=== PATIENT | female | born 1950 | race Caucasian/White ===

== ENCOUNTER 2016-12-19 06:14 | Inpatient (IN) | payer MEDICARE, OTHER ==
--- NOTE | 2016-12-08 14:11 | PREOPHP ---
DATE OF ADMISSION: 12/09/2016 The patient is to have surgery with Dr. Bro Butt 12/09/2016. REQUESTING PHYSICIAN: Dr. Bro Butt REASON FOR CONSULTATION: Medical evaluation and clearance of a 66-year-old woman about to undergo s urgery. Thank you, Dr. Butt, for allowing us to participate in the care of this patient. HISTORY OF PRESENT ILLNESS: Arina Aparicio, a 66-year-old woman, had a trimalleolar fracture of her ri ght ankle, reinjured it and is currently being admitted for removal of hardware and open reduction o f a trimalleolar nonunion fracture with internal fixation and allograft placement. The patient had been relatively healthy until she fell and stepped off a curb wrong way and suffered this fracture. PAST SURGICAL HISTORY: Positive for the following: She had surgery for a tubal also had an exploratory surgery in 1979, had total abdominal hysterectomy done in the past with an ovary left in place. Other than that, she has fractured her right ankle and right arm has had no significant medical hospitalizations to speak of and has been managing relatively well. MAJOR MEDICAL ISSUES: Include: COPD secondary to chronic smoking, osteoporosis, hypertension and h ypertensive heart disease. MEDICATIONS: She is currently taking the following medications: 1. Albuterol inhaler as needed. 2. Baby aspirin daily. 3. Stiolto 1 puff twice a day, which is a combination of budesonide and formoterol 160 mcg/4.5 mcg daily. 4. Valium as needed 5 mg. 5. Lasix 20 mg a day. 6. Lamotrigine 100 mg 1 twice a day. 7. Losartan 25 mg daily. 8. Metoprolol tartrate 50 mg half a tablet b.i.d. some vitamins and minerals and some p.r.n. medica tions. ALLERGIES: SHE IS NOT ALLERGIC TO ANY MEDICINES TO HER KNOWLEDGE. SOCIAL HISTORY: The patient is , has 1 daughter, has some grandchildren. She quit smoking cigarettes, does smokes periodic cigars. Alcohol socially. Does drink decaffeinated coffee, usual ly has no difficulty sleeping at night. FAMILY HISTORY: Father is still alive at 88, has dementia. Mother of COPD at age 72. She has some half siblings and a sister. Other than cancer, hypertension and COPD, there is no other signi ficant family history. REVIEW OF SYSTEMS HEENT: Denies any significant headaches. CARDIORESPIRATORY: Shortness of breath on exertion. Denies any chest pain or orthopnea. GASTROINTESTINAL: No melena or hematemesis. GENITOURINARY: No urgency, frequency. GYNECOLOGIC: Post hysterectomy. MUSCULOSKELETAL: Positive for right ankle pain secondary to her fracture and reinjury. NEUROPSYCHIATRIC: Unremarkable. GENERAL HEALTH: As above. PHYSICAL EXAMINATION: VITAL SIGNS: The patient's blood pressure was 125/86, pulse was 79 and regular, respirations were 1 8, temperature was 97, height 5 feet 6-1/2 inches, weight 152 pounds. GENERAL: The patient was noted to be a well-developed, well-nourished female, alert and cooperative , in no apparent acute distress, oriented to time, place, and person. HEAD, EARS, EYES, NOSE AND THROAT: Head was atraumatic. Eyes: Pupils were equal, reactive to ligh t and accommodation. Fundi were benign. Tympanic membranes were unremarkable. Nose was negative. Mouth was unremarkable. Fair oral hygiene was present. NECK: Supple without any rigidity. Trachea was midline. Thyroid was unremarkable. Neck veins wer e flat. Carotid pulses were equal. No bruits were heard. BACK: Unremarkable. CHEST: Symmetrical. BREASTS AND AXILLARY: Did not reveal any masses. LUNGS: Clear to percussion and auscultation. Few scattered rhonchi were noted, but the patient was moving air relatively well, but cleared up with deep breaths. HEART: PMI is fifth intercostal space at the midclavicular line. Regular sinus rhythm was noted. No significant murmurs, rubs, or gallops being elicited. ABDOMEN: Soft, good bowel sounds were noted. No significant organomegaly, masses, or tenderness. Scars from prior surgery were noted. PELVIC/RECTAL: Per mental retardation aide. EXTREMITIES: Did not reveal any clubbing, edema or cyanosis; however, there was a boot on the right lower extremity for immobilization of her right trimalleolar fracture. Peripheral pulses were phys iologic. SKIN: Moist and warm without any eruptions. No gross lymphadenopathy was noted. NEUROLOGIC: Grossly intact. IMPRESSION: 1. Nonunion of a trimalleolar fracture, right ankle. 2. Chronic obstructive pulmonary disease. 3. Hypertension. 4. Osteoporosis by history. 5. Degenerative joint disease. 6. Hypertensive heart disease. DISCUSSION: Review of laboratory and other data revealed the following: The patient's chemistry pa denise including electrolytes, glucose, BUN, creatinine and liver function tests, serum iron, magnesium , thyroid function tests, CBC, sed rate, PT and PTT were in normal. The patient's urinalysis reveal ed positive nitrite as well as a small amount of leukocytes and red cells. The patient, in view of the fact that she was asymptomatic; however, a high risk was begun on therapy prior to her surgery a nd her urinalysis will be repeated prior to her surgery. The patient's chest x-ray did not reveal a ny acute cardiopulmonary changes. Patient also had a cardiac clearance with Dr. Lori Harrison who fe lt that this patient was low risk in terms of cardiac status and EKG basically revealed a regular si nus rhythm and right bundle branch block. DISCUSSION: Dr. Bro Butt, I see no contraindication in this patient undergoing current proposed surgery under desired form of anesthesia and feel she is a suitable candidate at this particular i nt in time. Should any medical problems arise during her outpatient surgery at [facility], we will be m ore than happy to address them at the appropriate times. Thank you again, Dr. Butt, for allowing us to participate in the care of this patient. Dictated By: KATIE NAVA/VICKY Conf#: [id number] DID#: [id number]
[2016-12-18 11:16] VITALS: BMI 24.6
[2016-12-19] VITALS (16 sets, daily range): BP systolic 98–140; BP diastolic 26–59; PULSE 67–78; RESP 14–20; Ht 170.2 cm; Wt 69.9 kg
[~2016-12-19] VITALS: Ht 170.2 cm; Wt 69.9 kg
[2016-12-19] MEDS ORDERED: LACTATED RINGER'S 1,000 ML IV* SCH (06:30)
[2016-12-19] MEDS ORDERED: POLYMYXIN/BACITRACIN 1L IRRIG ONE (06:44)
[2016-12-19] MEDS ORDERED: MIDAZOLAM 1 MG/ML 2 ML INJ ONE (06:52)
[2016-12-19] MEDS ORDERED: FENTAnyl 50 MCG/ML VIAL ONE (06:52)
[2016-12-19] MEDS ORDERED: ONDANSETRON 4 MG INJ ONE (06:52)
[2016-12-19] MEDS ORDERED: SUCCINYLCHOLINE CHLORIDE 100 MG/5 ML SYG IV ONE (06:52)
[2016-12-19] MEDS ORDERED: ROCURONIUM 50 MG INJ ONE (06:52)
[2016-12-19] MEDS ORDERED: PROPOFOL 20 ML ONE (06:52)
[2016-12-19] MEDS ORDERED: CEFAZOLIN 1 GM INJ ONE (06:52)
[2016-12-19] MEDS ORDERED: METOCLOPRAMIDE 10 MG INJ ONE (06:53)
[2016-12-19] MEDS ORDERED: DEXAMETHASONE 4 MG/ML 1 ML INJ ONE (06:54)
--- NOTE | 2016-12-19 07:09 | HPN ---
Date/Time of Note Date/Time of Note DATE: 12/19/16 TIME: 07:09 Interval H&P Admission Note Pt. seen H&P reviewed: No system changes AARON STUART MD Dec 19, 2016 07:09
[2016-12-19] MEDS ORDERED: ROPIVACAINE 0.5 % 30 ML VIAL ONE ×2 (07:13→10:44)
[2016-12-19] MEDS ORDERED: DIPHENHYDRAMINE 25 MG CAP PO PRN (07:30)
[2016-12-19] MEDS ORDERED: ONDANSETRON 4 MG INJ IV PRN ×2 (07:30→08:30)
[2016-12-19] MEDS ORDERED: CEFAZOLIN 1 GM/50 ML (PMX) IVPB SCH (08:00)
[2016-12-19] MEDS ORDERED: FENTAnyl 50 MCG/ML VIAL IV PRN ×2 (08:30)
[2016-12-19] MEDS ORDERED: MEPERIDINE 25 MG INJ IV PRN (08:30)
[2016-12-19] MEDS ORDERED: HYDROmorphONE (0.2 MG/ML) 10ML SYG IV PRN ×2 (08:30)
[2016-12-19] MEDS ORDERED: LABETALOL HCL 20MG INJ IV PRN (08:30)
[2016-12-19] MEDS ORDERED: hydrALAzine 20 MG INJ IV PRN (08:30)
[2016-12-19] MEDS: SENNA/DOCUSATE NA (8.6MG/50MG) TAB PO SCH ×2 (09:00→20:32)
[2016-12-19] MEDS ORDERED: BACITRACIN/POLYMYXIN 28.35 GM OINT TOP ONE (10:00)
[2016-12-19] MEDS ORDERED: BUPIVACAINE 0.5% (SDV) 30 ML INJ ONE (10:00)
--- NOTE | 2016-12-19 11:11 | RADRPT ---
PROCEDURE: Intraoperative imaging of the right ankle with fluoroscopy. CLINICAL INDICATION: Right ankle pain. Intraoperative. TECHNIQUE: 6 images of the right ankle were obtained in the operating room with an image intensifi er. No radiologist was in attendance. Fluoroscopy time is 108 seconds. COMPARISON: No prior study is available for comparison. FINDINGS: Surgical instruments are noted overlying the right ankle. Images demonstrate open reduction and internal fixation of the medial and lateral malleoli with plat es and screws. IMPRESSION: 1. Intraoperative imaging of the right ankle. RPTAT: QQ .Charly Gastelum MD, MD Date Time Electronically viewed and signed by .Charly Gastelum MD, MD on 12/19/2016 11:11 .R/
[2016-12-19] MEDS: HYDROmorphONE (0.2 MG/ML) 10ML SYG IV PRN ×5 (11:40→13:00)
[2016-12-19] MEDS: HYDROmorphONE 0.2 MG/ML PCA IV SCH ×2 (12:01→20:35)
--- NOTE | 2016-12-19 12:35 | OPR ---
Date/Time of Note Date/Time of Note DATE: 12/19/16 TIME: 12:22 Operative Report Procedure Date: Dec 19, 2016 Preoperative Diagnosis 1. Right distal fibula fracture nonunion, malunion 2. right distal tibia fracture nonunion malunion Postoperative Diagnosis 1. Right distal fibula fracture nonunion, malunion 2. right distal tibia fracture nonunion malunion Operation/Procedure Performed Right distal fibular fracture nonunion malunion open reduction internal fixation with allograft Right distal tibia fracture nonunion malunion open reduction internal fixation with allograft Right ankle open reduction internal fixation of syndesmosis Use of fluoroscopy Application of short leg splint Surgeon Bro Stuart MD Home Health Speech Therapist None Anesthesia Type: general, other (Popliteal regional block anesthesia with local saphenous block) Anesthesiologist: BO LOCKE MD Tourniquet Time: 2 hours and 15 minutes at 250 mmHg Estimated Blood Loss: 50 - 100 ml's Transfusion none Specimen None Grafts/Implants Arthrex titanium distal fibular locking plate Arthrex stainless steel medial plate Arthrex arthrocell allograft Tubes/Drains None Complications none Pt Condition Post Procedure: stable Disposition: PACU Indications Patient is a 66-year-old female with a history of lupus presenting with a six- month history of a right distal ankle fracture that has stayed in a malunited position and is a nonunion as well. Given the displacement and type of fracture pattern patient was indicated for open reduction and internal fixation of the malunion and nonunion of the distal fibula and tibia fracture Risk Note: Patient was explained the risks and benefits of surgery and the patient's [place] and [place] tribes language including not limited to infection, bleeding, injury to blood vessels, nerves, ligaments or tendons. Risks of anesthesia, deep vein thrombosis and need for reduce future surgery. Patient acknowledged these risk by signing the surgical consent form. Procedure Description The patient was met in the preoperative holding area, marked with the correct operative extremity confirmed with both patient and consent. The patient was then brought back in the operative theater, placed supine on operative table, given preoperative antibiotics and preoperative regional block anesthesia. The patient was then placed supine on the table with all bony prominences well padded with a nonsterile tourniquet placed on the operative extremity. The patient was then prepped and draped in the normal sterile fashion. All parties in the room did a timeout and everyone agreed it was the correct patient, and extremity and procedure. Attention was then turned initially to the distal fibular fracture. An incision was made over the distal fibula. The incision was taken down to the fibula with care taken to avoid injury to the neurovascular structures. The malunion and nonunion fracture was identified. The bony callus at the malunion site was osteotomized and removed and debrided and the fracture was reduced. The bone quality was found to be extensively osteoporotic in nature. There are 2 fracture sites found and the proximal fracture site was held in reduction and a 3.0 lag screw was placed across the fracture site in typical fashion. The remainder of the fracture was then fixated with a distal fibular plate with proximal cortical screws initially followed by locking screws distally and fibula was held in reduction and shown that the fibular length and alignment and rotation had been re-achieved. Once this was shown, the wound was irrigated thoroughly. Attention was then brought over to the medial aspect of the ankle and incision was taken down over the medial distal tibia where the fractures were identified and callus in the malunited and nonunited site was removed and debrided. Again the bony quality was found to be extensively osteoporotic. The fracture was held in reduction and a medial malleolar plate was then placed over the fracture site to hold the fracture in reduction and fixated initially proximally and then tamped in and held in place with a 4.0 partially-threaded screw at the tip of the medial malleolus. This is then followed by proximal cortical screws. The wound was irrigated thoroughly and Arthro allograft cell was then placed in the area of bony comminuted loss on both the medial distal tibia and lateral distal fibula. A 3.5 millimeter screw was then placed across the syndesmosis from lateral to medial, from the distal fibula to the medial tibia to hold the syndesmosis in place. Tourniquet had been brought down and hemostasis had been achieved prior to the wound closure. All wounds were thoroughly irrigated and closed in layers with initially 2-0 Vicryl, followed by 3-0 Monocryl followed by 3-0 nylon in a vertical mattress fashion. All wounds were dressed with Xeroform, antibiotic ointment, 4 x 4s, 5 ABDs were placed and the patient was placed in a well-padded short leg splint. All sponge and needle counts were correct. . Modifier 22 note: Given the extensive length of time that the fracture was in a improper position thus leading to a malunited fracture that was also a nonunion as well this created an extensively more complicated fracture pattern and typically more difficult surgery. This case was then made extensively longer and more technically challenging as a result of this complicated situation due to the fact that the ankle fracture had not been treated appropriately prior to now. Thus it should be compensated accordingly. BRO STUART MD Dec 19, 2016 12:34
[2016-12-19] MEDS ORDERED: DIAZEPAM 5 MG TAB PO PRN (14:30)
--- NOTE | 2016-12-19 14:36 | CONS ---
Date/Time of Note Date/Time of Note DATE: 12/19/16 TIME: 14:31 Consult Date/Type/Reason Admit Date/Time Dec 19, 2016 at 07:10 Initial Consult Date 12/08/2016 Type of Consultation: internal medicine Reason for Consultation pre-op evaluation and clearance Ordering Provider: AARON STUART MD Subjective post-op in recovery room alert no complaints Objective Vital Signs Date Time Temp Pulse Resp B/P Pulse Ox O2 Delivery O2 Flow Rate FiO2 12/19/16 14:08 97.8 73 18 132/50 93 12/19/16 12:30 Nasal Cannula 2.0 Exam vss chest clear heart regular rhythm abbd. soft Results/Medications Medications Current Medications Lactated Ringer's (Lr) 1,000 ml @ 0 mls/hr Q0M IV* ; Start 12/19/16 at 06:30; Stop 12/19/16 at 23:00 Senna/Docusate Sodium (Senokot-S) 1 tab BID PO ; Start 12/19/16 at 09:00 Simethicone (Mylicon) 80 mg TID PRN PO DISTENSION/GAS/BLOATING; Start 12/19/16 at 07:30 Ondansetron HCl (Zofran Inj) 4 mg Q4H PRN IV NAUSEA AND/OR VOMITING; Start 12/19/16 at 07:30 Diphenhydramine HCl (Benadryl) 25 mg Q4H PRN PO ITCHING; Start 12/19/16 at 07: 30 Hydromorphone HCl (Dilaudid DIRECTOR DESIGN) MG/HR CONTINUOUS RATE ... Q4PCA IV Last administered on 12/19/16t 12:01; Admin Dose 6 MG; Start 12/19/16 at 07:30 Oxycodone HCl 10 mg 10 mg Q4H PRN PO PAIN; Start 12/19/16 at 07:30 Cefazolin Sodium (Ancef 1 Gm/50 ml (Pmx)) 50 ml @ 100 mls/hr Q8H IVPB ; Start 12/19/16 at 12:00; Stop 12/21/16 at 04:29 Lamotrigine (Lamictal) 100 mg BID PO ; Start 12/19/16 at 21:00; Status UNV Losartan Potassium (Cozaar) 25 mg DAILY PO ; Start 12/20/16 at 09:00; Status UNV Metoprolol Tartrate (Lopressor) 25 mg BID PO ; Start 12/19/16 at 21:00; Status UNV Diazepam (Valium) 5 mg Q6H PRN PO ANXIETY; Start 12/19/16 at 14:30; Status UNV Assessment/Plan Chief Complaint/Hosp Course post op right ankle surgery stable Problems: Additional Assessment/Plan plan medications reordered will follow with you thank you KATIE Muir MD Dec 19, 2016 14:36
[2016-12-19] MEDS: CEFAZOLIN 1 GM/50 ML (PMX) 50 ML IVPB SCH ×2 (16:45→20:32)
[2016-12-19] MEDS ORDERED: ALBUTEROL HFA 8 GM INHALER INH PRN (17:00)
[2016-12-19] MEDS: METOPROLOL 25 MG TAB PO SCH (20:33)
[2016-12-19] MEDS: LAMOTRIGINE 100 MG TAB PO SCH (20:52)
[2016-12-20] VITALS (30 sets, daily range): BP systolic 70–118; BP diastolic 38–60; PULSE 66–84; RESP 16–30
[2016-12-20] MEDS: CEFAZOLIN 1 GM/50 ML (PMX) 50 ML IVPB SCH ×3 (03:56→21:32)
[2016-12-20 05:12] LABS: BASOPHILS % 0.1 % (0.0-2.0); HEMATOCRIT 47.7 % (37.0-47.0); HEMOGLOBIN 15.3 g/dl (12.0-16.0); LYMPHOCYTES # 1.2 10^3/ul (0.8-2.9); LYMPHOCYTES % 6.6 % (15.0-51.0); MEAN CORPUSCULAR HEMOGLOBIN 31.7 pg (29.0-33.0); MEAN CORPUSCULAR HGB CONC 32.1 g/dl (32.0-37.0); MEAN PLATELET VOLUME 9.9 fl (7.4-10.4); MONOCYTE # 1.2 10^3/ul (0.3-0.9); MONOCYTES % 6.3 % (0.0-11.0); NEUTROPHIL # 15.9 10^3/ul (1.6-7.5); NEUTROPHILS % 86.3 % (39.0-77.0); PLATELET COUNT 234 10^3/UL (140-415); RED BLOOD COUNT 4.82 10^6/ul (4.20-5.40); RED CELL DISTRIBUTION WIDTH 11.9 % (11.5-14.5); WHITE BLOOD COUNT 18.4 10^3/ul (4.8-10.8)
[2016-12-20 05:45] LABS: ALBUMIN/GLOBULIN RATIO 1.33; BILIRUBIN,INDIRECT 0.1 mg/dl (0-1.1); BILIRUBIN,TOTAL 0.1 mg/dl (0.2-1.3); CALCIUM 8.6 mg/dl (8.4-10.2); CREATININE 1.16 mg/dl (0.44-1.00); POTASSIUM 4.6 mmol/L (3.5-5.1)
--- NOTE | 2016-12-20 08:04 | CONS ---
Date/Time of Note Date/Time of Note DATE: 12/20/16 TIME: 07:58 Consult Date/Type/Reason Admit Date/Time Dec 19, 2016 at 07:10 Initial Consult Date 12/08/2016 Type of Consultation: internal medicine Reason for Consultation medical f/u and management Ordering Provider: AARON STUART MD Subjective patient quite sleepy hard to wake up however did say good morning,no obvious complaints. Objective Vital Signs Date Time Temp Pulse Resp B/P Pulse Ox O2 Delivery O2 Flow Rate FiO2 12/20/16 06:41 17 12/20/16 02:35 97.8 86 112/53 96 12/19/16 14:00 Nasal Cannula 2.0 Intake and Output 12/19/16 12/19/16 12/20/16 15:00 23:00 07:00 Intake Total 1000 ml 100 ml 2150 ml Output Total 50 ml 800 ml Balance 950 ml 100 ml 1350 ml Exam vss stable heent unremakable lungs clear heart regularneuro quite lethargic Results/Medications Result Diagram: 12/20/16 0438 12/20/16 0438 Results 24 hrs Laboratory Tests Test 12/20/16 04:38 White Blood Count 18.4 H Red Blood Count 4.82 Hemoglobin 15.3 Hematocrit 47.7 H Mean Corpuscular Volume 99.0 Mean Corpuscular Hemoglobin 31.7 Mean Corpuscular Hemoglobin Concent 32.1 Red Cell Distribution Width 11.9 Platelet Count 234 Mean Platelet Volume 9.9 Neutrophils % 86.3 H Lymphocytes % 6.6 L Monocytes % 6.3 Eosinophils % 0.0 Basophils % 0.1 Nucleated Red Blood Cells % 0.0 Neutrophils # 15.9 H Lymphocytes # 1.2 Monocytes # 1.2 H Eosinophils # 0.0 Basophils # 0.0 Nucleated Red Blood Cells # 0.0 Sodium Level 137 Potassium Level 4.6 Chloride Level 96 L Carbon Dioxide Level 29 Anion Gap 17 H Blood Urea Nitrogen 14 Creatinine 1.16 H Glucose Level 155 Calcium Level 8.6 Total Bilirubin 0.1 L Direct Bilirubin 0.00 Indirect Bilirubin 0.1 Aspartate Amino Transf (AST/SGOT) 56 H Alanine Aminotransferase (ALT/SGPT) 41 Alkaline Phosphatase 64 Total Protein 7.0 Albumin 4.0 Globulin 3.00 Albumin/Globulin Ratio 1.33 Medications Current Medications Senna/Docusate Sodium (Senokot-S) 1 tab BID PO Last administered on 12/19/16 20:32; Admin Dose 1 TAB; Start 12/19/16 at 09:00 Simethicone (Mylicon) 80 mg TID PRN PO DISTENSION/GAS/BLOATING; Start 12/19/16 at 07:30 Ondansetron HCl (Zofran Inj) 4 mg Q4H PRN IV NAUSEA AND/OR VOMITING; Start 12/19/16 at 07:30 Diphenhydramine HCl (Benadryl) 25 mg Q4H PRN PO ITCHING; Start 12/19/16 at 07: 30 Hydromorphone HCl (Dilaudid BIOMEDICAL ELECTRONICS TECHNICIAN) MG/HR CONTINUOUS RATE ... Q4PCA IV Last administered on 12/19/16 20:35; Admin Dose 6 MG; Start 12/19/16 at 07:30 Oxycodone HCl 10 mg 10 mg Q4H PRN PO PAIN; Start 12/19/16 at 07:30 Cefazolin Sodium (Ancef 1 Gm/50 ml (Pmx)) 50 ml @ 100 mls/hr Q8H IVPB Last administered on 12/20/16 03:56; Admin Dose 100 MLS/HR; Start 12/19/16 at 12:00 ; Stop 12/21/16 at 04:29 Lamotrigine (Lamictal) 100 mg BID PO Last administered on 12/19/16 20:52; Admin Dose 100 MG; Start 12/19/16 at 21:00 Losartan Potassium (Cozaar) 25 mg DAILY PO ; Start 12/20/16 at 09:00 Metoprolol Tartrate (Lopressor) 25 mg BID PO Last administered on 12/19/16 20: 33; Admin Dose 25 MG; Start 12/19/16 at 21:00 Diazepam (Valium) 5 mg Q6H PRN PO ANXIETY; Start 12/19/16 at 14:30 Assessment/Plan Chief Complaint/Hosp Course post op right ankle surgery stable Problems: Additional Assessment/Plan will d/c director career services and narcotics ,abgs to r/o co2 retention,currently off o2 KATIE SEVERINO MD Dec 20, 2016 08:04
[2016-12-20] MEDS: SENNA/DOCUSATE NA (8.6MG/50MG) TAB PO SCH ×2 (08:24→21:31)
[2016-12-20] MEDS: LOSARTAN 25 MG TAB PO SCH (08:24)
[2016-12-20] MEDS: LAMOTRIGINE 100 MG TAB PO SCH ×2 (08:24→21:00)
[2016-12-20] MEDS: METOPROLOL 25 MG TAB PO SCH ×2 (08:25→21:00)
[2016-12-20 08:43] LABS: AADO2 Arterial 40.9 mmHg (7.0-24.0); Allen Test ACCEPTAB; Arterial Base Excess -3.2 mmol/L (-3.0-3); Arterial COHb 2.7 % (0.0-3.0); Arterial Fraction of Oxyhgb 76.8 % (93.0-99.0); Arterial HCO3 28.8 mmol/L (22.0-26.0); Arterial MetHb 0.5 % (0.0-1.5); Arterial Total Hemglobin 15.7 g/dl (12.0-18.0); MODE NASAL CANNULA
[2016-12-20] MEDS ORDERED: SPECIAL NON-STANDARD MEDICATION INH SCH (09:00)
[2016-12-20] MEDS: SALMETEROL/FLUTICASONE 250/50 INHA INH SCH ×2 (09:00→21:31)
[2016-12-20 12:14] LABS: AADO2 Arterial 58.6 mmHg (7.0-24.0); Allen Test ACCEPTAB; Arterial Base Excess 2.2 mmol/L (-3.0-3); Arterial COHb 2.1 % (0.0-3.0); Arterial Fraction of Oxyhgb 86.7 % (93.0-99.0); Arterial MetHb 0.1 % (0.0-1.5); Arterial Total Hemglobin 15.6 g/dl (12.0-18.0); Blood Gas IEPAP 22/8; MODE MASK - BIPAP
--- NOTE | 2016-12-20 12:28 | PN ---
Date/Time of Note Date/Time of Note DATE: 12/20/16 TIME: 12:28 Assessment/Plan Lines/Catheters IV Catheter Type (from Nrsg): Saline Lock Santacruz in Place (from Nrsg): No Assessment/Plan Assessment/Plan Postoperative day #1 status post right ankle trimalleolar nonunion fracture open reduction internal fixation -Nonweightbearing to the right lower extremity - Xarelto for DVT prophylaxis -Patient was transferred to ICU per Dr. Blanco for BiPAP -P.o. and IV pain control - Patient to be discharged home. By Dr. Blanco and will FU with Dr Bro Stuart in 1 week Ace Stuart MD Subjective 24 Hr Interval Summary Patient doing well pain is well controlled. She denies any fevers chills nausea or vomiting Constitutional: no complaints Feeding: advancing diet Pain Control: well controlled Exam/Review of Systems Vital Signs Vitals Vital Signs Date Time Temp Pulse Resp B/P Pulse Ox O2 Delivery O2 Flow Rate FiO2 12/21/16 06:00 87 17 128/62 97 BIPAP 12/21/16 05:26 35 12/21/16 04:00 98.6 12/20/16 09:00 2.0 Intake and Output 12/20/16 12/20/16 12/21/16 15:00 23:00 07:00 Intake Total 50 ml 980 ml 588 ml Balance 50 ml 980 ml 588 ml Exam Constitutional: alert, oriented, well developed Musculoskeletal: other (Right lower extremity-splint intact, toes wiggle, capillary refill brisk brisk, toes are warm and well-perfused, sensation intact to light touch to the exposed toes) Results Result Diagram: 12/20/16 0438 12/20/16 0438 BRO STUART MD Dec 20, 2016 12:28
--- NOTE | 2016-12-20 14:20 | TS ---
DATE OF ADMISSION: 12/19/2016 DATE OF DISCHARGE: Patient seen approximately 7:45 a.m. and again at 11:30 a.m. in the intensive care unit. HISTORY OF PRESENT ILLNESS: Arina Aparicio is a 66-year-old woman with chronic obstructive pulmonary disease, underwent right ankle surgery yesterday, was doing relatively well postoperatively. This morning on my visit was hard to arouse and albeit said answered some questions, did not seem to be totally with it. Arterial blood gases were subsequently ordered which revealed a pH of 7.1 and a CO2 in the 80s within normal. PaO2 compatible with extreme CO2 retention , possibly secondary to pain medication and/or chronic O2 use,although at the time that I saw the patient, she was not on any O2. Subsequent to that, patient was transferred to the intensive care unit after consultation was obtained by Dr. Cano and for further pulmonary management was undertaken. PHYSICAL EXAMINATION VITAL SIGNS: In the intensive care unit revealed the following: Patient's blood pressure was 101/49. BiPAP was on O2 was 91%, pulse was 71. GENERAL: The patient was afebrile. HEENT: BiPAP being on but the patient much more alert than she was earlier in the morning. CHEST: Lung were relatively clear with few scattered rhonchi and wheezes. HEART: Revealed a regular rhythm. ABDOMEN: Unremarkable. IMPRESSION: 1. Acute CO2 retention in a patient with chronic obstructive pulmonary disease. 2. Hypertension. 3. Status post right ankle surgery. PLAN: To maintain CPAP until her CO2 is normalized, avoidance of pain medication and chronic O2. This will be managed with Dr. Cano's help. CONDITION: At second visit is stable. PROGNOSIS: Obviously dependent upon how patient responds to current therapy. Dictated By: KATIE NAVA/VICKY Conf#: [id number] DID#: [id number] MTDD
--- NOTE | 2016-12-20 14:27 | CONS ---
DATE OF ADMISSION: 12/19/2016 DATE OF CONSULTATION: TYPE OF CONSULTATION: Pulmonary. REASON FOR CONSULT: Respiratory distress. HISTORY OF PRESENT ILLNESS: This is a 66-year-old lady with a history of COPD, extensive tobacco hi story, quit smoking 4 years ago, came in for evaluation of a trimalleolar fracture requiring surgica l repair by Dr. Stuart. The patient underwent surgery without complication. Postoperatively, this morning had increasing respiratory distress, found to have significant hypercapnia on arterial blood gas requiring initiation of noninvasive positive pressure ventilation. At the time it appears the patient was on her HOTHOUSE WORKER which may have contributed to alveolar hypoventilation and respiratory distre ss. PAST MEDICAL HISTORY: As above. MEDICATIONS: Per chart. ALLERGIES: NONE. SOCIAL HISTORY: Nonsmoker, no alcohol, no history of drug use. FAMILY HISTORY: Noncontributory. SYSTEMS REVIEW: A 12-point review of systems was negative other than that mentioned above. PHYSICAL EXAMINATION: GENERAL: Well-nourished, well-developed lady, talking in full and complete sentences on BiPAP. VITAL SIGNS: Currently afebrile, temperature 98, pulse 80, blood pressure 108/50, O2 saturation 96% on FIO2 of 30% BiPAP. NECK: Supple. No JVD or lymphadenopathy. CARDIAC: S1, S2, no added sounds or murmurs. CHEST: Diminished air entry bilaterally. ABDOMEN: Soft, nontender. No guarding or rebound. EXTREMITIES: No cyanosis, clubbing. Edema +1. NEUROLOGIC: No focal deficits. DIAGNOSTIC DATA: Chest x-ray is pending at time of this dictation, repeat arterial blood gas is pen ding also. IMPRESSION AND PLAN: Hypercapnic respiratory failure, likely secondary to over sedation with an und erlying history of chronic obstructive pulmonary disease. The patient will require: 1. Decrease IV sedation, started on IV pain control. 2. Incentive spirometry. 3. Noninvasive positive pressure ventilation. 4. Bronchodilators as needed. DIFFERENTIAL DIAGNOSIS: Including acute pulmonary embolus, although this does not normally cause ac [place] hypercapnic respiratory failure. Dictated By: ALYSE CROFT MD SV/NTS Conf#: [id number] DID#: [id number] CC: KATIE SEVERINO MD; AARON STUART MD;*EndCC*
[2016-12-20] MEDS: HYDROmorphONE 1 MG/ML SYG IV PRN ×2 (14:37→21:40)
[2016-12-20] MEDS: 1/2 NS + KCL 20 MEQ 1,000 ML IV SCH (15:37)
[2016-12-20] MEDS ORDERED: SOD CHLORIDE 0.9% 250 ML IV ONE ×2 (16:00→16:30)
[2016-12-20] MEDS ORDERED: SODIUM CHLORIDE 0.45% 500 ML BAG IV* ONE (16:30)
[2016-12-20] MEDS ORDERED: LIDOCAINE 1% (MPF) 5 ML VIAL SC ONE (16:30)
[2016-12-20] MEDS ORDERED: NORepinephrine 8MG/250 ML (PMX 250 ML IV SCH (16:30)
[2016-12-20] MEDS ORDERED: SOD CHLORIDE 0.9% 100 ML ONE (18:45)
--- NOTE | 2016-12-20 19:13 | RADRPT ---
PROCEDURE: Ultrasound guidance for placement of needle in left upper extremity vein. CLINICAL INDICATION: Venous access. TECHNIQUE: Limited sonography of the left upper extremity was performed. Ultrasound images were recorded and s tored in the patient's medical record. COMPARISON: None. FINDINGS: The ultrasound images demonstrate a patent left upper extremity vein. The PICC line was inserted by the PICC line nurse. IMPRESSION: 1. Ultrasound guidance for a needle placement in a left upper extremity vein. 2. The left upper extremity vein is patent. RPTAT: QQ .Charly Gastelum MD, MD Date Time Electronically viewed and signed by .Charly Gastelum MD, MD on 12/20/2016 19:13 .R/
--- NOTE | 2016-12-20 19:44 | RADRPT ---
PROCEDURE: XR Chest. CLINICAL INDICATION: Check PICC line position. TECHNIQUE: Single frontal view. COMPARISON: No prior study is available for comparison. FINDINGS: There is a left arm PICC line with the tip in the lower superior vena cava. The lungs are clear. The heart size is normal. There is no pleural effusion. There is no pneumothorax. IMPRESSION: 1. Left arm PICC line tip in satisfactory position. 2. Otherwise normal chest radiograph. RPTAT: QQ .Charly Gastelum MD, Date Time Electronically viewed and signed by .Charly Gastelum MD, MD on 12/20/2016 19:44 .R/
[2016-12-20] MEDS: RIVAROXABAN 10 MG TABLET PO SCH (21:32)
[2016-12-21] VITALS (24 sets, daily range): BP systolic 94–145; BP diastolic 39–119; PULSE 73–94; RESP 16–32
[2016-12-21] MEDS: 1/2 NS + KCL 20 MEQ 1,000 ML IV SCH ×2 (02:30→10:18)
[2016-12-21] MEDS: CEFAZOLIN 1 GM/50 ML (PMX) 50 ML IVPB SCH (05:12)
--- NOTE | 2016-12-21 07:15 | RADRPT ---
PROCEDURE: XR Chest. CLINICAL INDICATION: Shortness of breath. TECHNIQUE: Single frontal view. COMPARISON: 12/20/2016. FINDINGS: There is a left arm PICC line with the tip in the upper superior vena cava. There is mild pulmonary edema. The lungs are otherwise clear. The heart size is normal. There is no pleural effusion. There is no pneumothorax. IMPRESSION: 1. Left arm PICC line tip in the upper superior vena cava. 2. Mild pulmonary edema.. 3. Otherwise unremarkable chest radiograph. RPTAT: QQ .Charly Gastelum MD, MD Date Time Electronically viewed and signed by .Charly Gastelum MD, MD on 12/21/2016 07:14 .R/
[2016-12-21 07:51] LABS: AADO2 Arterial 105.1 mmHg (7.0-24.0); Allen Test ACCEPTAB; Arterial Base Excess -1.6 mmol/L (-3.0-3); Arterial COHb 0.6 % (0.0-3.0); Arterial Fraction of Oxyhgb 95.3 % (93.0-99.0); Arterial HCO3 25.3 mmol/L (22.0-26.0); Arterial MetHb 0.2 % (0.0-1.5); Arterial Total Hemglobin 14.3 g/dl (12.0-18.0); Blood Gas IEPAP 18/5; Blood Gas PS 13; MODE MASK - BIPAP
[2016-12-21] MEDS: LOSARTAN 25 MG TAB PO SCH (08:54)
[2016-12-21] MEDS: LAMOTRIGINE 100 MG TAB PO SCH ×2 (08:54→20:28)
[2016-12-21] MEDS: SALMETEROL/FLUTICASONE 250/50 INHA INH SCH ×2 (08:54→21:08)
[2016-12-21 08:55] LABS: BASOPHILS % 0.1 % (0.0-2.0); EOSINOPHILS % 0.1 % (0.0-7.0); HEMATOCRIT 39.1 % (37.0-47.0); HEMOGLOBIN 13.2 g/dl (12.0-16.0); LYMPHOCYTES # 0.7 10^3/ul (0.8-2.9); LYMPHOCYTES % 8.9 % (15.0-51.0); MEAN CORPUSCULAR HEMOGLOBIN 32.5 pg (29.0-33.0); MEAN CORPUSCULAR HGB CONC 33.8 g/dl (32.0-37.0); MEAN CORPUSCULAR VOLUME 96.3 fl (82.0-101.0); MEAN PLATELET VOLUME 10.2 fl (7.4-10.4); MONOCYTE # 0.6 10^3/ul (0.3-0.9); MONOCYTES % 7.2 % (0.0-11.0); NEUTROPHIL # 6.8 10^3/ul (1.6-7.5); NEUTROPHILS % 83.1 % (39.0-77.0); RED BLOOD COUNT 4.06 10^6/ul (4.20-5.40); RED CELL DISTRIBUTION WIDTH 11.9 % (11.5-14.5); WHITE BLOOD COUNT 8.2 10^3/ul (4.8-10.8)
[2016-12-21] MEDS: SENNA/DOCUSATE NA (8.6MG/50MG) TAB PO SCH ×2 (08:55→20:28)
[2016-12-21] MEDS: METOPROLOL 25 MG TAB PO SCH ×2 (08:55→20:28)
[2016-12-21 09:06] LABS: POSITIVE DIFF @See below
[2016-12-21 09:16] LABS: BILIRUBIN,INDIRECT 0.1 mg/dl (0-1.1); CALCIUM 8.4 mg/dl (8.4-10.2); CREATININE 0.68 mg/dl (0.44-1.00)
[2016-12-21 09:17] LABS: ALBUMIN 3.3 g/dl (3.3-4.9); BILIRUBIN,TOTAL 0.1 mg/dl (0.2-1.3); TOTAL PROTEIN 6.6 g/dl (6.1-8.1)
--- NOTE | 2016-12-21 10:06 | CONS ---
Date/Time of Note Date/Time of Note DATE: 12/21/16 TIME: 10:04 Assessment/Plan Assessment/Plan Additional Assessment/Plan Chest x-ray was reviewed from today which is essentially clear except for emphysematous changes. ABG from this morning is markedly improved. Assessment and recommendations; 1. Patient admitted with right ankle fracture status post repair. 2. Postop severe hypoventilation, patient has responded very well to BiPAP with marked reduction in PCO2. Currently on 2 L nasal cannula. 3. Patient currently has excellent mental status. 4. History of hypertension and COPD. Continue current treatment. Patient can be transferred to the medical floor. Consultation Date/Type/Reason Admit Date/Time Dec 19, 2016 at 07:10 Initial Consult Date Type of Consultation: Pulmonary/critical care Referring Provider: AARON STUART MD 24 HR Interval Summary Free Text/Dictation Patient's condition is markedly improved. She is completely awake and alert. Denies any significant right ankle pain. Denies any chest pain, wheezing, sputum production. General exam; elderly woman, awake and alert. Currently in no distress. Exam/Review of Systems Vital Signs Vitals Vital Signs Date Time Temp Pulse Resp B/P Pulse Ox O2 Delivery O2 Flow Rate FiO2 12/21/16 09:00 86 23 145/119 97 Nasal Cannula 4.0 12/21/16 08:00 98.7 12/21/16 05:26 35 Intake and Output 12/20/16 12/20/16 12/21/16 15:00 23:00 07:00 Intake Total 50 ml 980 ml 668 ml Balance 50 ml 980 ml 668 ml Exam HEENT exam; supple neck, no JVD. No lymphadenopathy. Midline trachea. No thyromegaly. Pharynx is clear. Patient has fair dentition. Pupils are midsize and reactive to light. Chest exam; clear to auscultation. S1-S2 audible, no murmurs. Regular rhythm. Abdomen exam; soft, nontender. No organomegaly. Bowel sounds audible. Extremity exam; no peripheral edema. There is a cast applied to the right ankle. IN FILE OPERATOR exam; no focal deficit. Results Result Diagram: 12/21/16 0816 12/21/16 0816 Results 24 hrs Laboratory Tests Test 12/21/16 07:00 12/21/16 08:16 Blood Gas Specimen Source Blood arterial Arterial Blood Date Drawn 12/21/2016 7:40:19 AM Arterial Blood pH (Temp corrected) 7.310 L Arterial Blood pCO2 (Temp correct) 51.4 H Arterial Blood pO2 (Temp corrected) 84.7 Arterial Blood HCO3 25.3 Arterial Blood Base Excess -1.6 Arterial Blood Oxygen Saturation 96.1 Ernesto Test ACCEPTAB Arterial Blood Gas Puncture Site Right Radial Arterial Blood Carboxyhemoglobin 0.6 Arterial Blood Methemoglobin 0.2 Blood Gas A-a O2 Differential 105.1 H Oxyhemoglobin Percent 95.3 Total Hemoglobin 14.3 Blood Gas Temperature 37.0 Blood Gas Respiration Rate 18.0 Blood Gas Actual Respiration Rate 19 Blood Gas Modality MASK - BIPAP FiO2 35.0 Blood Gas Tidal Volume 697.0 Blood Gas Pressure Support 13 Blood Gas IPAP/EPAP Ratio 18/5 Blood Gas Notified Yary PEREZ RCP Blood Gas Notified Time 12/21/2016 7:51:01 AM White Blood Count 8.2 # Red Blood Count 4.06 L Hemoglobin 13.2 Hematocrit 39.1 Mean Corpuscular Volume 96.3 Mean Corpuscular Hemoglobin 32.5 Mean Corpuscular Hemoglobin Concent 33.8 Red Cell Distribution Width 11.9 Platelet Count Pending Mean Platelet Volume 10.2 Neutrophils % 83.1 H Lymphocytes % 8.9 L Monocytes % 7.2 Eosinophils % 0.1 Basophils % 0.1 Nucleated Red Blood Cells % 0.0 Neutrophils # 6.8 Lymphocytes # 0.7 L Monocytes # 0.6 Eosinophils # 0.0 Basophils # 0.0 Nucleated Red Blood Cells # 0.0 Sodium Level 138 Potassium Level 4.0 Chloride Level 104 Carbon Dioxide Level 28 Anion Gap 10 # Blood Urea Nitrogen 14 Creatinine 0.68 Glucose Level 100 # Calcium Level 8.4 Total Bilirubin 0.1 L Direct Bilirubin 0.00 Indirect Bilirubin 0.1 Aspartate Amino Transf (AST/SGOT) 53 H Alanine Aminotransferase (ALT/SGPT) 32 Alkaline Phosphatase 71 Total Protein 6.6 Albumin 3.3 Globulin 3.30 H Albumin/Globulin Ratio 1.00 Medications Medications Current Medications Senna/Docusate Sodium (Senokot-S) 1 tab BID PO Last administered on 12/21/16t 08:55; Admin Dose 1 TAB; Start 12/19/16 at 09:00 Simethicone (Mylicon) 80 mg TID PRN PO DISTENSION/GAS/BLOATING; Start 12/19/16 at 07:30 Ondansetron HCl (Zofran Inj) 4 mg Q4H PRN IV NAUSEA AND/OR VOMITING; Start 12/19/16 at 07:30 Diphenhydramine HCl (Benadryl) 25 mg Q4H PRN PO ITCHING; Start 12/19/16 at 07: 30 Hydromorphone HCl (Dilaudid NNPS) MG/HR CONTINUOUS RATE ... Q4PCA IV Last administered on 12/19/16 20:35; Admin Dose 6 MG; Start 12/19/16 at 07:30 Oxycodone HCl (Roxicodone) 10 mg Q4H PRN PO PAIN; Start 12/19/16 at 07:30 Lamotrigine (Lamictal) 100 mg BID PO Last administered on 12/21/16 08:54; Admin Dose 100 MG; Start 12/19/16 at 21:00 Losartan Potassium (Cozaar) 25 mg DAILY PO Last administered on 12/21/16 08: 54; Admin Dose 25 MG; Start 12/20/16 at 09:00 Metoprolol Tartrate (Lopressor) 25 mg BID PO Last administered on 12/21/16 08 :55; Admin Dose 25 MG; Start 12/19/16 at 21:00 Diazepam (Valium) 5 mg Q6H PRN PO ANXIETY; Start 12/19/16 at 14:30 Salmeterol Xinafoate/ Fluticasone (Advair 250/50 Diskus) 1 inh BID INH Last administered on 12/21/16 08:54; Admin Dose 1 INH; Start 12/20/16 at 09:00 Hydromorphone HCl 1 mg 1 mg Q2H PRN IV PAIN Last administered on 12/20/16 21: 40; Admin Dose 1 MG; Start 12/20/16 at 12:30 Potassium Chloride/Sodium Chloride 1,000 ml @ 80 mls/hr [id number] IV Last administered on 12/20/16 15:37; Admin Dose 80 MLS/HR; Start 12/20/16 at 14:00 Norepinephrine (Levophed) 250 ml @ 1.875 mls/ hr TITRATE IV ; Start 12/20/16 at 16:30 IV Flush (NS 10 ml) 10 ml PRN PRN IV IV PROTOCOL; Start 12/20/16 at 19:30 Miscellaneous Information Patients own medicat... BID@ XX ; Start at 10:00 [place] Dec 21, 2016 10:06
[2016-12-21 10:14] LABS: GIANT THROMBO% (M) 1 % (0-0); MONOCYTES % (M) 6 % (0-11); REACTIVE LYMPHOCYTES% (M) 6 % (0-0)
[2016-12-21] MEDS: oxyCODONE 5 MG TAB PO PRN (10:17)
[2016-12-21 13:04] LABS: PLATELET COUNT 130 10^3/UL (140-415)
--- NOTE | 2016-12-21 16:47 | PN ---
Date/Time of Note Date/Time of Note DATE: 12/21/16 TIME: 16:38 Assessment/Plan VTE Prophylaxis VTE Prophylaxis Intervention: contraindicated VTE Contraindication Reason: sx procedure on lower extremity Lines/Catheters IV Catheter Type (from Nrs): PICC Line Central line still needed: Yes Urinary Cath still in place: No Assessment/Plan Problems: (1) COPD (chronic obstructive pulmonary disease) Status: Chronic Comment: Patient with postoperative CO2 retention. Postoperatively placed on BIPAP. Now doing better. Clinically stable. (2) Ankle fracture, right Status: Acute Comment: Status post ORIF. Now non weight bearing. (3) Hypertension Status: Chronic Comment: Good blood pressure control. Assessment/Plan Clinically stable for transfer to med surgical floor. Subjective 24 Hr Interval Summary Free Text/Dictation Patient feeling tired but better Exam/Review of Systems Vital Signs Vitals Vital Signs Date Time Temp Pulse Resp B/P Pulse Ox O2 Delivery O2 Flow Rate FiO2 12/21/16 16:00 98.4 83 26 130/58 98 Nasal Cannula 12/21/16 15:00 3.0 12/21/16 07:40 35 Intake and Output 12/20/16 12/20/16 12/21/16 14:59 22:59 06:59 Intake Total 50 ml 900 ml 668 ml Balance 50 ml 900 ml 668 ml Exam Constitutional: alert, oriented Eyes: EOMI, nl conjunctiva Neck: supple Respiratory: normal air movement, wheezing (mild wheezing) Cardiovascular: regular rate and rhythm Gastrointestinal: soft Musculoskeletal: other (right lower extremity in large boot cast) Neurological: other (right wiggles toes otherwise intact.) Results Labs, ABG reviewed Result Diagram: 12/21/16 0816 12/21/16 0816 Results 24 hrs Laboratory Tests Test 12/21/16 07:00 12/21/16 08:16 Blood Gas Specimen Source Blood arterial Arterial Blood Date Drawn 12/21/2016 7:40:19 AM Arterial Blood pH (Temp corrected) 7.310 L Arterial Blood pCO2 (Temp correct) 51.4 H Arterial Blood pO2 (Temp corrected) 84.7 Arterial Blood HCO3 25.3 Arterial Blood Base Excess -1.6 Arterial Blood Oxygen Saturation 96.1 Ernesto Test ACCEPTAB Arterial Blood Gas Puncture Site Right Radial Arterial Blood Carboxyhemoglobin 0.6 Arterial Blood Methemoglobin 0.2 Blood Gas A-a O2 Differential 105.1 H Oxyhemoglobin Percent 95.3 Total Hemoglobin 14.3 Blood Gas Temperature 37.0 Blood Gas Respiration Rate 18.0 Blood Gas Actual Respiration Rate 19 Blood Gas Modality MASK - BIPAP FiO2 35.0 Blood Gas Tidal Volume 697.0 Blood Gas Pressure Support 13 Blood Gas IPAP/EPAP Ratio 18/5 Blood Gas Notified Whom SYLVIA PEREZP Blood Gas Notified Time 12/21/2016 7:51:01 AM White Blood Count 8.2 # Red Blood Count 4.06 L Hemoglobin 13.2 Hematocrit 39.1 Mean Corpuscular Volume 96.3 Mean Corpuscular Hemoglobin 32.5 Mean Corpuscular Hemoglobin Concent 33.8 Red Cell Distribution Width 11.9 Platelet Count 130 #L Mean Platelet Volume 10.2 Neutrophils % 83.1 H Segmented Neutrophils % (Manual) 71 Band Neutrophils % (Manual) 7 H Lymphocytes % 8.9 L Lymphocytes % (Manual) 10 L Reactive Lymphocytes % (Manual) 6 H Monocytes % 7.2 Monocytes % (Manual) 6 Eosinophils % 0.1 Basophils % 0.1 Nucleated Red Blood Cells % 0.0 Neutrophils # 6.8 Neutrophils # (Manual) 5.9 Band Neutrophils # 0.5 Absolute Lymphocytes (Manual) 0.8 Lymphocytes # 0.7 L Reactive Lymphocytes # 0.4 H Monocytes # 0.6 Absolute Monocytes (Manual) 0.4 Eosinophils # 0.0 Basophils # 0.0 Nucleated Red Blood Cells # 0.0 Giant Platelets 1 H Sodium Level 138 Potassium Level 4.0 Chloride Level 104 Carbon Dioxide Level 28 Anion Gap 10 # Blood Urea Nitrogen 14 Creatinine 0.68 Glucose Level 100 # Calcium Level 8.4 Total Bilirubin 0.1 L Direct Bilirubin 0.00 Indirect Bilirubin 0.1 Aspartate Amino Transf (AST/SGOT) 53 H Alanine Aminotransferase (ALT/SGPT) 32 Alkaline Phosphatase 71 Total Protein 6.6 Albumin 3.3 Globulin 3.30 H Albumin/Globulin Ratio 1.00 Medications Medications Current Medications Senna/Docusate Sodium (Senokot-S) 1 tab BID PO Last administered on 12/21/16t 08:55; Admin Dose 1 TAB; Start 12/19/16 at 09:00 Simethicone (Mylicon) 80 mg TID PRN PO DISTENSION/GAS/BLOATING; Start 12/19/16 at 07:30 Ondansetron HCl (Zofran Inj) 4 mg Q4H PRN IV NAUSEA AND/OR VOMITING; Start 12/19/16 at 07:30 Diphenhydramine HCl (Benadryl) 25 mg Q4H PRN PO ITCHING; Start 12/19/16 at 07: 30 Hydromorphone HCl (Dilaudid SENIOR ELECTRONICS DESIGN ENGINEER) MG/HR CONTINUOUS RATE ... Q4PCA IV Last administered on 12/19/16 20:35; Admin Dose 6 MG; Start 12/19/16 at 07:30 Oxycodone HCl (Roxicodone) 10 mg Q4H PRN PO PAIN Last administered on 10:17; Admin Dose 10 MG; Start 12/19/16 at 07:30 Lamotrigine (Lamictal) 100 mg BID PO Last administered on 12/21/16 08:54; Admin Dose 100 MG; Start 12/19/16 at 21:00 Losartan Potassium (Cozaar) 25 mg DAILY PO Last administered on 12/21/16 08: 54; Admin Dose 25 MG; Start 12/20/16 at 09:00 Metoprolol Tartrate (Lopressor) 25 mg BID PO Last administered on 12/21/16 08 :55; Admin Dose 25 MG; Start 12/19/16 at 21:00 Diazepam (Valium) 5 mg Q6H PRN PO ANXIETY; Start 12/19/16 at 14:30 Salmeterol Xinafoate/ Fluticasone (Advair 250/50 Diskus) 1 inh BID INH Last administered on 12/21/16 08:54; Admin Dose 1 INH; Start 12/20/16 at 09:00 Hydromorphone HCl 1 mg 1 mg Q2H PRN IV PAIN Last administered on 12/20/16 21: 40; Admin Dose 1 MG; Start 12/20/16 at 12:30 Potassium Chloride/Sodium Chloride (1/2 NS + KCl 20 Meq) 1,000 ml @ 80 mls/hr [id number] IV Last administered on 12/21/16 10:18; Admin Dose 80 MLS/HR; Start 12/20/16 at 14:00 IV Flush (NS 10 ml) 10 ml PRN PRN IV IV PROTOCOL; Start 12/20/16 at 19:30 Miscellaneous Information Patients own medicat... BID@ XX ; Start at 10:00 ROLF ALVA MD Dec 21, 2016 16:47
[2016-12-21] MEDS: RIVAROXABAN 10 MG TABLET PO SCH (17:25)
[2016-12-22] VITALS (8 sets, daily range): BP systolic 113–146; BP diastolic 56–69; PULSE 66–90; RESP 16–20
[2016-12-22] MEDS: 1/2 NS + KCL 20 MEQ 1,000 ML IV SCH ×3 (01:05→17:44)
[2016-12-22] MEDS: SENNA/DOCUSATE NA (8.6MG/50MG) TAB PO SCH ×2 (09:26→21:01)
[2016-12-22] MEDS: METOPROLOL 25 MG TAB PO SCH ×2 (09:26→21:01)
[2016-12-22] MEDS: LAMOTRIGINE 100 MG TAB PO SCH ×2 (09:27→21:01)
[2016-12-22] MEDS: SALMETEROL/FLUTICASONE 250/50 INHA INH SCH ×3 (09:27→22:06)
[2016-12-22] MEDS: LOSARTAN 25 MG TAB PO SCH (09:27)
--- NOTE | 2016-12-22 12:51 | CONS ---
Date/Time of Note Date/Time of Note DATE: 12/22/16 TIME: 12:50 Consult Date/Type/Reason Admit Date/Time Dec 19, 2016 at 07:10 Initial Consult Date Type of Consultation: Pulmonary/critical care Ordering Provider: AARON STUART MD Subjective Patient awake alert comfortable this morning on nasal cannula O2. She did not use her BiPAP overnight. Denies shortness of breath or chest pain. Objective Vital Signs Date Time Temp Pulse Resp B/P Pulse Ox O2 Delivery O2 Flow Rate FiO2 12/22/16 09:29 90 16 146/69 94 Nasal Cannula 2.0 90 12/22/16 07:36 98.5 12/21/16 07:40 35 Intake and Output 12/21/16 12/21/16 12/22/16 15:00 23:00 07:00 Intake Total 1640 ml 400 ml 1160 ml Output Total 700 ml 500 ml 600 ml Balance 940 ml -100 ml 560 ml Exam PHYSICAL EXAMINATION: GENERAL: Well-nourished, well-developed lady, talking in full and complete sentences on nasal cannula oxygen VITAL SIGNS: As above NECK: Supple. No JVD or lymphadenopathy. CARDIAC: S1, S2, no added sounds or murmurs. CHEST: Diminished air entry bilaterally. ABDOMEN: Soft, nontender. No guarding or rebound. EXTREMITIES: No cyanosis, clubbing. Edema +1. NEUROLOGIC: No focal deficits. Results/Medications Result Diagram: 12/21/1616 12/21/16 0816 Medications Current Medications Senna/Docusate Sodium (Senokot-S) 1 tab BID PO Last administered on 12/22/16 09:26; Admin Dose 1 TAB; Start 12/19/16 at 09:00 Simethicone (Mylicon) 80 mg TID PRN PO DISTENSION/GAS/BLOATING; Start 12/19/16 at 07:30 Ondansetron HCl (Zofran Inj) 4 mg Q4H PRN IV NAUSEA AND/OR VOMITING; Start 12/19/16 at 07:30 Diphenhydramine HCl (Benadryl) 25 mg Q4H PRN PO ITCHING; Start 12/19/16 at 07: 30 Oxycodone HCl (Roxicodone) 10 mg Q4H PRN PO PAIN Last administered on 10:17; Admin Dose 10 MG; Start 12/19/16 at 07:30 Lamotrigine (Lamictal) 100 mg BID PO Last administered on 12/22/16 09:27; Admin Dose 100 MG; Start 12/19/16 at 21:00 Losartan Potassium (Cozaar) 25 mg DAILY PO Last administered on 12/22/16 09: 27; Admin Dose 25 MG; Start 12/20/16 at 09:00 Metoprolol Tartrate (Lopressor) 25 mg BID PO Last administered on 12/22/16 09 :26; Admin Dose 25 MG; Start 12/19/16 at 21:00 Diazepam (Valium) 5 mg Q6H PRN PO ANXIETY; Start 12/19/16 at 14:30 Salmeterol Xinafoate/ Fluticasone (Advair 250/50 Diskus) 1 inh BID INH Last administered on 12/22/16 09:27; Admin Dose 1 INH; Start 12/20/16 at 09:00 Hydromorphone HCl 1 mg 1 mg Q2H PRN IV PAIN Last administered on 12/20/16 21: 40; Admin Dose 1 MG; Start 12/20/16 at 12:30 Potassium Chloride/Sodium Chloride (1/2 NS + KCl 20 Meq) 1,000 ml @ 80 mls/hr [id number] IV Last administered on 12/22/16 01:05; Admin Dose 80 MLS/HR; Start 12/20/16 at 14:00 IV Flush (NS 10 ml) 10 ml PRN PRN IV IV PROTOCOL; Start 12/20/16 at 19:30 Miscellaneous Information Patients own medicat... BID@10,16 XX ; Start at 10:00 Assessment/Plan Chief Complaint/Hosp Course IMPRESSION AND PLAN: Hypercapnic respiratory failure, likely secondary to over sedation with an underlying history of chronic obstructive pulmonary disease. Clinically improving. Underlying COPD appears to be stable. 1. Incentive spirometry 2. bronchodilators as needed 3. Noninvasive positive pressure ventilation as needed 4. Orthopedic recommendations Outpatient pulmonary function testing Problems: [facility] Dec 22, 2016 12:51
[2016-12-22] MEDS: FUROSEMIDE 20 MG TAB PO SCH (13:51)
[2016-12-22] MEDS: RIVAROXABAN 10 MG TABLET PO SCH (17:07)
[2016-12-22] MEDS: ACETAMINOPHEN 325 MG TAB PO PRN (18:26)
[2016-12-22] MEDS ORDERED: ACETAMINOPHEN 325 MG TAB PO PRN (18:30)
--- NOTE | 2016-12-22 19:41 | CONS ---
Date/Time of Note Date/Time of Note DATE: 12/22/16 TIME: 13:00 Late entry Assessment/Plan Assessment/Plan Problems: (1) COPD (chronic obstructive pulmonary disease) Status: Chronic Comment: post op CO2 retention in patient with COPD showing marked improvement in respiratory status. (2) Hypertension Status: Chronic (3) Ankle fracture, right Status: Acute Comment: s/p ORIF and now non weight bearing Additional Assessment/Plan Clinically improving. Appears to be back to baseline with acceptable O2 saturation on 2 L nasal cannula. Will likely need acute rehab since she is non weight bearing. Home meds resumed and ARU consult will be obtained. Consultation Date/Type/Reason Admit Date/Time Dec 19, 2016 at 07:10 Initial Consult Date Type of Consultation: Internal Medicine Referring Provider: AARON STUART MD 24 HR Interval Summary Free Text/Dictation Feeling better. Breathing is improved Exam/Review of Systems Vital Signs Vitals Vital Signs Date Time Temp Pulse Resp B/P Pulse Ox O2 Delivery O2 Flow Rate FiO2 12/22/16 14:56 98.0 82 20 138/65 97 12/22/16 13:44 Nasal Cannula 2.0 12/21/16 07:40 35 Intake and Output 12/21/16 12/21/16 12/22/16 15:00 23:00 07:00 Intake Total 1640 ml 400 ml 1160 ml Output Total 700 ml 500 ml 600 ml Balance 940 ml -100 ml 560 ml Exam Constitutional: alert, oriented Neck: supple Respiratory: clear to auscultation Cardiovascular: regular rate and rhythm Gastrointestinal: soft Musculoskeletal: other (right extremity boot cast) Results Result Diagram: 12/21/1681512/21/1616 Medications Medications Current Medications Senna/Docusate Sodium (Senokot-S) 1 tab BID PO Last administered on 12/22/16t 09:26; Admin Dose 1 TAB; Start 12/19/16 at 09:00 Simethicone (Mylicon) 80 mg TID PRN PO DISTENSION/GAS/BLOATING; Start 12/19/16 at 07:30 Ondansetron HCl (Zofran Inj) 4 mg Q4H PRN IV NAUSEA AND/OR VOMITING; Start 12/19/16 at 07:30 Diphenhydramine HCl (Benadryl) 25 mg Q4H PRN PO ITCHING; Start 12/19/16 at 07: 30 Oxycodone HCl (Roxicodone) 10 mg Q4H PRN PO PAIN Last administered on 10:17; Admin Dose 10 MG; Start 12/19/16 at 07:30 Lamotrigine (Lamictal) 100 mg BID PO Last administered on 12/22/16 09:27; Admin Dose 100 MG; Start 12/19/16 at 21:00 Losartan Potassium (Cozaar) 25 mg DAILY PO Last administered on 12/22/16 09: 27; Admin Dose 25 MG; Start 12/20/16 at 09:00 Metoprolol Tartrate (Lopressor) 25 mg BID PO Last administered on 12/22/16 09 :26; Admin Dose 25 MG; Start 12/19/16 at 21:00 Diazepam (Valium) 5 mg Q6H PRN PO ANXIETY; Start 12/19/16 at 14:30 Salmeterol Xinafoate/ Fluticasone (Advair 250/50 Diskus) 1 inh BID INH Last administered on 12/22/16 09:27; Admin Dose 1 INH; Start 12/20/16 at 09:00 Hydromorphone HCl 1 mg 1 mg Q2H PRN IV PAIN Last administered on 12/20/16 21: 40; Admin Dose 1 MG; Start 12/20/16 at 12:30 Potassium Chloride/Sodium Chloride (1/2 NS + KCl 20 Meq) 1,000 ml @ 40 mls/hr Q24H IV Last administered on 12/22/16 13:51; Admin Dose 40 MLS/HR; Start 11/26 at 14:00; Stop 12/23/16 at 07:00 IV Flush (NS 10 ml) 10 ml PRN PRN IV IV PROTOCOL; Start 12/20/16 at 19:30 Miscellaneous Information Patients own medicat... BID@10,16 XX ; Start at 10:00 Furosemide (Lasix) 20 mg DAILY PO Last administered on 12/22/16 13:51; Admin Dose 20 MG; Start 12/22/16 at 13:30 Acetaminophen (Tylenol Tab) 650 mg Q8H PRN PO headache Last administered on 18:26; Admin Dose 650 MG; Start 12/22/16 at 18:25 ROLF ALVA MD Dec 22, 2016 19:41
[2016-12-23 02:22] VITALS: BP 155/79; RESP 16
[2016-12-23] MEDS: oxyCODONE 5 MG TAB PO PRN (02:30)
[2016-12-23 06:39] LABS: CALCIUM 8.2 mg/dl (8.4-10.2); CREATININE 0.48 mg/dl (0.44-1.00); POTASSIUM 3.7 mmol/L (3.5-5.1)
[2016-12-23 07:40] VITALS: BP 131/60; PULSE 75; RESP 22
--- NOTE | 2016-12-23 07:46 | PN ---
Date/Time of Note Date/Time of Note DATE: 12/23/16 TIME: 07:39 Assessment/Plan VTE Prophylaxis VTE Prophylaxis Intervention: ambulation Lines/Catheters IV Catheter Type (from Nrs): PICC Line Central line still needed: No Urinary Cath still in place: No Assessment/Plan Chief Complaint/Hosp Course post op right ankle surgery stable Problems: Assessment/Plan pulmonary status back to baseline ,will discuss with dr gabrielle vanessa re discharge plans. Subjective 24 Hr Interval Summary Constitutional: no complaints Eyes: no complaints ENT: no complaints Cardiovascular: no complaints Gastrointestinal: no complaints Genitourinary: no complaints Musculoskeletal: restricted range of motion Skin: no complaints Neurologic: no complaints Lymphatic: no complaints Psychological: no complaints Immunologic: no complaints Exam/Review of Systems Vital Signs Vitals Vital Signs Date Time Temp Pulse Resp B/P Pulse Ox O2 Delivery O2 Flow Rate FiO2 12/23/16 02:22 98.3 72 16 155/79 99 12/23/16 01:38 2.0 12/22/16 20:00 Nasal Cannula 12/21/16 07:40 35 Intake and Output 12/22/16 12/22/16 12/23/16 15:00 23:00 07:00 Intake Total 1260 ml 410 ml 1000 ml Output Total 450 ml 150 ml Balance 810 ml 260 ml 1000 ml Exam Constitutional: alert Head: normocephalic ENMT: nl external ears & nose Neck: supple Respiratory: wheezing Cardiovascular: regular rate and rhythm Gastrointestinal: soft Musculoskeletal: range of motion Extremities: other (cast right lower extremity) Neurological: STEEL FABRICATOR II-XII intact, nl mental status, nl speech, nl strength Skin: nl turgor, No rash or lesions Lymph: nl lymph nodes Results patient doing well looking forward to being discharged Result Diagram: 12/21/16 0816 12/23/16 0516 Results 24 hrs Laboratory Tests Test 12/23/16 05:16 Sodium Level 141 Potassium Level 3.7 Chloride Level 102 Carbon Dioxide Level 36 H Anion Gap 7 L Blood Urea Nitrogen 5 #L Creatinine 0.48 Glucose Level 99 Calcium Level 8.2 L Medications Medications Current Medications Senna/Docusate Sodium (Senokot-S) 1 tab BID PO Last administered on 12/22/16t 21:01; Admin Dose 1 TAB; Start 12/19/16 at 09:00 Simethicone (Mylicon) 80 mg TID PRN PO DISTENSION/GAS/BLOATING; Start 12/19/16 at 07:30 Ondansetron HCl (Zofran Inj) 4 mg Q4H PRN IV NAUSEA AND/OR VOMITING; Start 12/19/16 at 07:30 Diphenhydramine HCl (Benadryl) 25 mg Q4H PRN PO ITCHING; Start 12/19/16 at 07: 30 Oxycodone HCl (Roxicodone) 10 mg Q4H PRN PO PAIN Last administered on 02:30; Admin Dose 10 MG; Start 12/19/16 at 07:30 Lamotrigine (Lamictal) 100 mg BID PO Last administered on 12/22/16 21:01; Admin Dose 100 MG; Start 12/19/16 at 21:00 Losartan Potassium (Cozaar) 25 mg DAILY PO Last administered on 12/22/16 09: 27; Admin Dose 25 MG; Start 12/20/16 at 09:00 Metoprolol Tartrate (Lopressor) 25 mg BID PO Last administered on 12/22/16 21 :01; Admin Dose 25 MG; Start 12/19/16 at 21:00 Diazepam (Valium) 5 mg Q6H PRN PO ANXIETY; Start 12/19/16 at 14:30 Salmeterol Xinafoate/ Fluticasone (Advair 250/50 Diskus) 1 inh BID INH Last administered on 12/22/16 22:06; Admin Dose 1 INH; Start 12/20/16 at 09:00 Hydromorphone HCl (Dilaudid) 1 mg Q2H PRN IV PAIN Last administered on 21:40; Admin Dose 1 MG; Start 12/20/16 at 12:30 IV Flush (NS 10 ml) 10 ml PRN PRN IV IV PROTOCOL; Start 12/20/16 at 19:30 Miscellaneous Information Patients own medicat... BID@10,16 XX ; Start at 10:00 Furosemide (Lasix) 20 mg DAILY PO Last administered on 12/22/16 13:51; Admin Dose 20 MG; Start 12/22/16 at 13:30 Acetaminophen (Tylenol Tab) 650 mg Q8H PRN PO headache Last administered on 11/ 12/17at 18:26; Admin Dose 650 MG; Start 12/22/16 at 18:25 KATIE SEVERINO MD Dec 23, 2016 07:46
[2016-12-23 08:11] LABS: AADO2 Arterial 69.1 mmHg (7.0-24.0); Allen Test ACCEPTAB; Arterial Base Excess 5.9 mmol/L (-3.0-3); Arterial COHb 0.7 % (0.0-3.0); Arterial Fraction of Oxyhgb 94.3 % (93.0-99.0); Arterial HCO3 32.9 mmol/L (22.0-26.0); Arterial MetHb 0.3 % (0.0-1.5); Arterial Total Hemglobin 13.3 g/dl (12.0-18.0); MODE NASAL CANNULA
[2016-12-23] MEDS ORDERED: ASPIRIN (EC) 81 MG TAB PO SCH (09:00)
[2016-12-23] MEDS ORDERED: VITAMIN A & D 5 GM OINT PACKET TOP ONE (09:13)
[2016-12-23] MEDS: SENNA/DOCUSATE NA (8.6MG/50MG) TAB PO SCH (09:42)
[2016-12-23] MEDS: LOSARTAN 25 MG TAB PO SCH (09:42)
[2016-12-23] MEDS: LAMOTRIGINE 100 MG TAB PO SCH (09:43)
[2016-12-23] MEDS: METOPROLOL 25 MG TAB PO SCH (09:43)
[2016-12-23] MEDS: FUROSEMIDE 20 MG TAB PO SCH (09:43)
[2016-12-23] MEDS: SALMETEROL/FLUTICASONE 250/50 INHA INH SCH (09:44)
[2016-12-23] MEDS: ACETAMINOPHEN 325 MG TAB PO PRN (11:14)
[2016-12-23 14:27] VITALS: BP 115/56; PULSE 77; RESP 16
--- NOTE | 2016-12-23 14:55 | CONS ---
Date/Time of Note Date/Time of Note DATE: 12/23/16 TIME: 14:54 Consult Date/Type/Reason Admit Date/Time Dec 19, 2016 at 07:10 Type of Consultation: Pulmonary Ordering Provider: AARON STUART MD Subjective Patient stable this morning mild shortness of breath on exertion. No fever no chills. Objective Vital Signs Date Time Temp Pulse Resp B/P Pulse Ox O2 Delivery O2 Flow Rate FiO2 12/23/16 08:32 2.0 12/23/16 08:00 Nasal Cannula 12/23/16 07:40 98.2 75 22 131/60 94 12/21/16 07:40 35 Intake and Output 12/22/16 12/22/16 12/23/16 15:00 23:00 07:00 Intake Total 1260 ml 410 ml 1000 ml Output Total 450 ml 150 ml Balance 810 ml 260 ml 1000 ml Exam PHYSICAL EXAMINATION: GENERAL: Well-nourished, well-developed lady, talking in full and complete sentences on nasal cannula oxygen VITAL SIGNS: As above NECK: Supple. No JVD or lymphadenopathy. CARDIAC: S1, S2, no added sounds or murmurs. CHEST: Diminished air entry bilaterally. ABDOMEN: Soft, nontender. No guarding or rebound. EXTREMITIES: No cyanosis, clubbing. Edema +1. NEUROLOGIC: No focal deficits. Results/Medications Result Diagram: 12/21/16 0816 12/23/16 0516 Results 24 hrs Laboratory Tests Test 12/23/16 05:16 12/23/16 07:00 Sodium Level 141 Potassium Level 3.7 Chloride Level 102 Carbon Dioxide Level 36 H Anion Gap 7 L Blood Urea Nitrogen 5 #L Creatinine 0.48 Glucose Level 99 Calcium Level 8.2 L Blood Gas Specimen Source Blood arterial Arterial Blood Date Drawn 12/23/2016 7:40:55 AM Arterial Blood pH (Temp corrected) 7.370 Arterial Blood pCO2 (Temp correct) 58.2 H Arterial Blood pO2 (Temp corrected) 76.4 L Arterial Blood HCO3 32.9 H Arterial Blood Base Excess 5.9 H Arterial Blood Oxygen Saturation 95.3 Ernesto Test ACCEPTAB Arterial Blood Gas Puncture Site Right Radial Arterial Blood Carboxyhemoglobin 0.7 Arterial Blood Methemoglobin 0.3 Blood Gas A-a O2 Differential 69.1 H Oxyhemoglobin Percent 94.3 Total Hemoglobin 13.3 Blood Gas Temperature 37.0 Blood Gas Modality NASAL CANNULA FiO2 30.0 Blood Gas Notified Whom JLD Blood Gas Notified Time 12/23/2016 8:11:33 AM Medications Current Medications Senna/Docusate Sodium (Senokot-S) 1 tab BID PO Last administered on 12/23/16 09:42; Admin Dose 1 TAB; Start 12/19/16 at 09:00 Simethicone (Mylicon) 80 mg TID PRN PO DISTENSION/GAS/BLOATING; Start 12/19/16 at 07:30 Ondansetron HCl (Zofran Inj) 4 mg Q4H PRN IV NAUSEA AND/OR VOMITING; Start 12/19/16 at 07:30 Diphenhydramine HCl (Benadryl) 25 mg Q4H PRN PO ITCHING; Start 12/19/16 at 07: 30 Oxycodone HCl (Roxicodone) 10 mg Q4H PRN PO PAIN Last administered on 02:30; Admin Dose 10 MG; Start 12/19/16 at 07:30 Lamotrigine (Lamictal) 100 mg BID PO Last administered on 12/23/16 09:43; Admin Dose 100 MG; Start 12/19/16 at 21:00 Losartan Potassium (Cozaar) 25 mg DAILY PO Last administered on 12/23/16 09: 42; Admin Dose 25 MG; Start 12/20/16 at 09:00 Metoprolol Tartrate (Lopressor) 25 mg BID PO Last administered on 12/23/16 09 :43; Admin Dose 25 MG; Start 12/19/16 at 21:00 Diazepam (Valium) 5 mg Q6H PRN PO ANXIETY; Start 12/19/16 at 14:30 Salmeterol Xinafoate/ Fluticasone (Advair 250/50 Diskus) 1 inh BID INH Last administered on 12/23/16 09:44; Admin Dose 1 INH; Start 12/20/16 at 09:00 Hydromorphone HCl (Dilaudid) 1 mg Q2H PRN IV PAIN Last administered on 21:40; Admin Dose 1 MG; Start 12/20/16 at 12:30 IV Flush (NS 10 ml) 10 ml PRN PRN IV IV PROTOCOL; Start 12/20/16 at 19:30 Miscellaneous Information Patients own medicat... BID@10,16 XX ; Start at 10:00 Furosemide (Lasix) 20 mg DAILY PO Last administered on 12/23/16 09:43; Admin Dose 20 MG; Start 12/22/16 at 13:30 Acetaminophen (Tylenol Tab) 650 mg Q8H PRN PO headache Last administered on 11:14; Admin Dose 650 MG; Start 12/22/16 at 18:25 Aspirin (Halfprin) 162 mg DAILY PO ; Start 12/23/16 at 09:00 Assessment/Plan Chief Complaint/Hosp Course IMPRESSION AND PLAN: Hypercapnic respiratory failure, likely secondary to over sedation with an underlying history of chronic obstructive pulmonary disease. Clinically improving. Underlying COPD appears to be stable. 1. Incentive spirometry 2. bronchodilators as needed 3. Noninvasive positive pressure ventilation as needed 4. Orthopedic recommendations Outpatient pulmonary function testing Consider ARU evaluation Problems: ALYSE CROFT MD, [facility] Dec 23, 2016 14:55
[2016-12-23] MEDS: RIVAROXABAN 10 MG TABLET PO SCH (18:04)
--- NOTE | 2016-12-24 03:21 | TS ---
DATE OF ADMISSION: 12/19/2016 DATE OF DISCHARGE: 12/23/2016 ADMITTING DIAGNOSES: 1. Trimalleolar fracture, right ankle. 2. Chronic obstructive pulmonary disease. 3. Hypertension. 4. Osteoporosis. 5. Degenerative joint disease. 6. Stable health. DISCHARGE DIAGNOSES: 1. Status post trimalleolar repair, surgical repair of right ankle. 2. Chronic obstructive pulmonary disease episode of acute hypercapnia, currently at baseline. 3. Chronic obstructive pulmonary disease, stable. 4. Hypertension. 5. Degenerative joint disease. The patient was admitted 12/19/2016 for acute surgery. This was accomplished. The patient subsequently had a peak pulmonary decompensation and eventually transferred to the intensive care unit at which time her vital signs were as follows: Blood pressure was 101/49, BiPAP with O2, O2 sat was 91%. Her pCO2 initially was 88, pH of 7.1. The patient at that time was confused. LUNGS: Revealed scattered rhonchi and wheezing. HEART: Revealed a regular rhythm. ABDOMEN: Unremarkable. IMPRESSION: At that time was: 1. Acute CO2 retention in a patient with chronic obstructive pulmonary disease. 2. Status post right ankle surgery. 3. Hypertension. 4. Osteoporosis by history. 5. Degenerative joint disease. COURSE IN HOSPITAL: The patient recovered nicely with BiPAP treatment and the patient's pCO2 from an initial pH of 7.1 and a pCO2 of 88.5 and a pO2 of 47 up to a pH of 7.3, pCO2 in the 50s, pO2 in the 70s with an O2 sat of 92 %.. The patient's blood pressure and other vital signs were stable; however, her pulmonary status was still tenuous and in view of the fact that the patient was nonweightbearing, it was decided that the best place for this patient to begin therapy and recovery in view of her multiple problems would be in the acute rehabilitation unit. FINAL DIAGNOSES: As above. CONDITION ON TRANSFER: Improving. Dictated By: KATIE SEVERINO MD SS/VICKY Conf#: [id number] DID#: [id number] CC: KATIE SEVERINO MD;*EndCC* MTDD
== END 2016-12-23 19:10 | DRG 492 ==
LOC: SDS 06:14 → REC 07:10 → MS1 13:50 → ICU 12-20 11:00 → MS1 12-21 18:17
PROVIDERS: ADMIT Internal Medicine; ATTEND Internal Medicine
PROC: 0QSG04Z Reposition Right Tibia with Internal Fixation Device, Open Approach (ICD-10-PCS; 2016-12-19)
PROC: 0QSJ04Z Reposition Right Fibula with Internal Fixation Device, Open Approach (ICD-10-PCS; principal; 2016-12-19 07:30)
PROC: 02HV33Z Insertion of Infusion Device into Superior Vena Cava, Percutaneous Approach (ICD-10-PCS; 2016-12-20)
DX: S82.851P Displaced trimalleolar fracture of right lower leg, subsequent encounter for closed fracture with malunion (principal); J96.92 Respiratory failure, unspecified with hypercapnia; E87.2 Acidosis; M81.0 Age-related osteoporosis without current pathological fracture; J44.9 Chronic obstructive pulmonary disease, unspecified; I10 Essential (primary) hypertension; Z87.891 Personal history of nicotine dependence
CPT/HCPCS: 36569; 36600; 71010; 76937; 80048; 80053; 82306; 82803; 85025; 87081; 94660; 97116; 97162; 97530; J0690; J1100; J1170; J2175; J2250; J2405; J2765; J2795; J3010; J3480; J7040

== ENCOUNTER 2016-12-23 19:25 | Inpatient (IN) | payer MEDICARE, OTHER ==
[~2016-12-23] VITALS: Ht 170.2 cm; Wt 75.0 kg
[2016-12-23 20:00] VITALS: BP 134/65; RESP 18
[2016-12-23 20:12] VITALS: Ht 170.2 cm; Wt 75.0 kg
[2016-12-23] MEDS ORDERED: FUROSEMIDE 20 MG TAB PO SCH (20:15)
[2016-12-23] MEDS ORDERED: LOSARTAN 25 MG TAB PO SCH (20:15)
[2016-12-23] MEDS ORDERED: ACETAMINOPHEN 325 MG TAB PO PRN (20:15)
[2016-12-23] MEDS ORDERED: DIAZEPAM 5 MG TAB PO PRN (20:15)
[2016-12-23] MEDS ORDERED: ALBUTEROL HFA 8 GM INHALER INH PRN (20:15)
[2016-12-23] MEDS ORDERED: DIPHENHYDRAMINE 25 MG CAP PO PRN (20:15)
[2016-12-23] MEDS ORDERED: LACTULOSE 30ML CUP PO PRN (20:30)
[2016-12-23] MEDS ORDERED: MAGNESIUM HYDROXIDE 30ML CUP PO PRN (20:30)
[2016-12-23] MEDS ORDERED: BISACODYL 10 MG SUPP PR PRN (20:30)
[2016-12-23] MEDS: SALMETEROL/FLUTICASONE 250/50 INHA INH SCH (20:49)
[2016-12-23] MEDS: oxyCODONE 5 MG TAB PO PRN (20:51)
[2016-12-23] MEDS: DOCUSATE SODIUM 100 MG CAP PO SCH (20:51)
[2016-12-23] MEDS: METOPROLOL 25 MG TAB PO SCH (20:52)
[2016-12-23] MEDS: SENNA TAB PO SCH (20:52)
[2016-12-23] MEDS: SENNA/DOCUSATE NA (8.6MG/50MG) TAB PO SCH (21:00)
[2016-12-24] LABS: ADD UMIC YES; UR ASCORBIC ACID NEGATIVE (NEGATIVE); UR BILIRUBIN (Dip) NEGATIVE (NEGATIVE); UR BLOOD (Dip) NEGATIVE (NEGATIVE); UR BUDDING YEAST FEW /HPF (NONE SEEN); UR CLARITY CLEAR (CLEAR); UR COLOR STRAW (YELLOW); UR GLUCOSE (Dip) NEGATIVE (NEGATIVE); UR KETONES (Dip) NEGATIVE (NEGATIVE); UR LEUKOCYTE ESTERASE (Dip) 2+ Leu/ul (NEGATIVE); UR NITRITE (Dip) NEGATIVE (NEGATIVE); UR RBC 1 /HPF (0-5); UR SPECIFIC GRAVITY (Dip) 1.005 (1.003-1.030); UR SQUAMOUS EPITHELIAL CELL FEW /HPF (FEW); UR TOTAL PROTEIN (Dip) NEGATIVE (NEGATIVE); UR UROBILINOGEN (Dip) NEGATIVE (NEGATIVE)
[2016-12-24] MEDS: LAMOTRIGINE 100 MG TAB PO SCH ×2 (01:27→08:11)
[2016-12-24 02:00] VITALS: BP 138/69; RESP 18
[2016-12-24 07:26] LABS: BASOPHILS % 0.4 % (0.0-2.0); EOSINOPHILS # 0.2 10^3/ul (0.0-0.5); EOSINOPHILS % 2.5 % (0.0-7.0); HEMATOCRIT 36.2 % (37.0-47.0); LYMPHOCYTES # 1.1 10^3/ul (0.8-2.9); MEAN CORPUSCULAR HEMOGLOBIN 32.3 pg (29.0-33.0); MEAN CORPUSCULAR HGB CONC 33.1 g/dl (32.0-37.0); MEAN CORPUSCULAR VOLUME 97.6 fl (82.0-101.0); MEAN PLATELET VOLUME 10.1 fl (7.4-10.4); MONOCYTE # 0.6 10^3/ul (0.3-0.9); MONOCYTES % 8.6 % (0.0-11.0); NEUTROPHIL # 4.8 10^3/ul (1.6-7.5); NEUTROPHILS % 72.1 % (39.0-77.0); PLATELET COUNT 160 10^3/UL (140-415); RED BLOOD COUNT 3.71 10^6/ul (4.20-5.40); RED CELL DISTRIBUTION WIDTH 11.5 % (11.5-14.5); WHITE BLOOD COUNT 6.7 10^3/ul (4.8-10.8)
[2016-12-24 07:30] VITALS: BP 139/68; RESP 18
[2016-12-24 07:48] LABS: ALBUMIN 2.9 g/dl (3.3-4.9); ALBUMIN/GLOBULIN RATIO 0.85; BILIRUBIN,INDIRECT 0.2 mg/dl (0-1.1); BILIRUBIN,TOTAL 0.2 mg/dl (0.2-1.3); CALCIUM 8.9 mg/dl (8.4-10.2); CREATININE 0.51 mg/dl (0.44-1.00); POTASSIUM 3.9 mmol/L (3.5-5.1); TOTAL PROTEIN 6.3 g/dl (6.1-8.1)
[2016-12-24] MEDS: oxyCODONE 5 MG TAB PO PRN ×3 (08:09→21:36)
[2016-12-24] MEDS: SENNA/DOCUSATE NA (8.6MG/50MG) TAB PO SCH (08:11)
[2016-12-24] MEDS: DOCUSATE SODIUM 100 MG CAP PO SCH (08:13)
[2016-12-24] MEDS: METOPROLOL 25 MG TAB PO SCH ×2 (08:13→20:41)
[2016-12-24] MEDS: SALMETEROL/FLUTICASONE 250/50 INHA INH SCH ×2 (08:14→21:30)
--- NOTE | 2016-12-24 10:38 | CONS ---
DATE OF ADMISSION: 12/23/2016 DATE OF CONSULTATION: 12/24/2016 REHABILITATION POST ADMISSION PHYSICIAN EVALUATION REHABILITATION IMPAIRMENT CATEGORY: Other orthopedic injury with complicated right ankle trimalleolar nonunion fracture, ultimately requiring ORIF. ACTIVE COMORBIDITIES: 1. Postoperative respiratory distress. 2. Chronic obstructive pulmonary disease. 3. Acute pain syndrome. 4. Hypertension. 5. Degenerative joint disease. 6. History of recent right upper extremity fracture in addition to the right lower extremity fracture. 7. Impairments in self-care and mobility. HISTORY OF PRESENT ILLNESS: The patient is a pleasant 66-year-old female with a history of COPD and hypertension who had fractured right upper extremity and right lower extremity a few months ago. 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 She was admitted to [facility] for ORIF of the right ankle. The patient's postoperative course was notable for respiratory distress and the patient did require positive pressure ventilation. The patient's pulmonary status did gradually improve and patient now is noted to have significant impairments in self-care and mobility as compared to baseline. The patient has been cleared to transfer to the rehabilitation unit for comprehensive interdisciplinary rehab care. FUNCTIONAL HISTORY: Prior to recent events, she was independent in self-care tasks and mobility. Currently, she requires maximal assist for self-care and mobility tasks. I have reviewed the preadmission screen and the patient's current functional status is consistent with the preadmission screen. SOCIAL HISTORY: The patient lives at home with family in an apartment with 12 stair steps at entryway. She is a recent . PAST MEDICAL HISTORY: 1. COPD. 2. Hypertension. 3. Hypertensive heart disease. 4. History of total abdominal hysterectomy. 5. History of right ankle fracture and right upper extremity fracture. CURRENT MEDICATIONS: 1. Ventolin inhaler. 2. Valium p.r.n. 3. Senokot b.i.d. 4. Lasix 20 mg p.o. daily. 5. Lamictal 100 mg p.o. b.i.d. 6. Cozaar 25 mg p.o. daily. 7. Lopressor 25 mg p.o. b.i.d. 8. Roxicodone p.r.n. 9. Xarelto 10 mg p.o. at bedtime. 10. Advair inhaler. 11. Mylicon p.r.n. ALLERGIES: THE PATIENT WITH NO KNOWN DRUG ALLERGIES. PHYSICAL EXAMINATION: VITAL SIGNS: The patient is currently afebrile with stable vital signs. HEENT: The extraocular motions are intact. Oropharynx is clear. NECK: Supple. LUNGS: Clear anteriorly. CARDIAC: S1, S2. ABDOMEN: Soft, nontender, positive bowel sounds. NEUROLOGIC: She is awake and alert and oriented x3. She can follow simple 1- step commands. Her cranial nerves are grossly intact. She has good strength in bilateral upper extremities and the left lower extremity. Dorsiflexion and plantar flexion intact on the right. PLAN: The patient has been admitted for comprehensive interdisciplinary acute rehab and is anticipated to tolerate 3 hours of daily therapy in divided doses for at least 5/7 days a week. The treatment plan will include: 1. Physical therapy to focus on bed mobility, transfers, and household ambulation with the goal of having the patient reach a standby assist level. 2. Occupational therapy to focus on hygiene, grooming, dressing, bathing, and toileting activities with goal of having the patient reach a standby assist level. 3. Rehabilitation nursing for carryover of therapeutic interventions, the goal of continent of bowel and bladder, and the goal of pain adequately managed on oral medications. We will also have the goal of home off of O2, if tolerated. REHABILITATION BARRIER: Stairs at home. INTERVENTION FOR BARRIER: Stair training. ESTIMATED LENGTH OF STAY: Ten days. DISPOSITION GOAL: Home. I acknowledge that I performed a full physical examination on this patient within 24 hours of admission to the rehabilitation unit and believe the patient is a good candidate for comprehensive interdisciplinary rehab care and is anticipated to make reasonable goals in a reasonable period of time as outlined above. Dictated By: MELIDA FONTANA MD LY/NTS Conf#: [id number] DID#: [id number] CC: MELIDA FONTANA MD;*EndCC* MTDD
[2016-12-24] MEDS: RIVAROXABAN 10 MG TABLET PO SCH (17:21)
--- NOTE | 2016-12-24 18:56 | PN ---
Date/Time of Note Date/Time of Note DATE: 12/24/16 TIME: 18:54 Assessment/Plan VTE Prophylaxis VTE Prophylaxis Intervention: other VTE Contraindication Reason: sx procedure on lower extremity Lines/Catheters Central line still needed: No Urinary Cath still in place: No Assessment/Plan Problems: (1) COPD (chronic obstructive pulmonary disease) Status: Chronic (2) Hypertension Status: Chronic (3) Ankle fracture, right Status: Acute Assessment/Plan Clinically stable. Now in ARU working with PT/OT. Subjective 24 Hr Interval Summary Free Text/Dictation Patient doing and feeling well Exam/Review of Systems Vital Signs Vitals Vital Signs Date Time Temp Pulse Resp B/P Pulse Ox O2 Delivery O2 Flow Rate FiO2 12/24/16 08:00 2.0 12/24/16 07:30 98.1 73 18 139/68 95 Intake and Output 12/23/16 12/23/16 12/24/16 15:00 23:00 07:00 Output Total 750 ml Balance -750 ml Exam Constitutional: alert, oriented Neck: supple Respiratory: clear to auscultation Cardiovascular: regular rate and rhythm Gastrointestinal: soft Musculoskeletal: other (Right leg in boot cast) Extremities: normal pulses Results Labs and vitals reviewedreviewed Result Diagram: 12/24/16 0618 12/24/16 0618 Results 24 hrs Laboratory Tests Test 12/23/16 21:00 12/24/16 06:18 Urine Color STRAW Urine Clarity CLEAR Urine pH 7.0 Urine Specific [place] 1.005 Urine Ketones NEGATIVE Urine Nitrite NEGATIVE Urine Bilirubin NEGATIVE Urine Urobilinogen NEGATIVE Urine Leukocyte Esterase 2+ H Urine Microscopic RBC 1 Urine Microscopic WBC 2 Urine Squamous Epithelial Cells FEW Urine Yeast (Budding) FEW A Urine Hemoglobin NEGATIVE Urine Glucose NEGATIVE Urine Total Protein NEGATIVE White Blood Count 6.7 Red Blood Count 3.71 L Hemoglobin 12.0 Hematocrit 36.2 L Mean Corpuscular Volume 97.6 Mean Corpuscular Hemoglobin 32.3 Mean Corpuscular Hemoglobin Concent 33.1 Red Cell Distribution Width 11.5 Platelet Count 160 # Mean Platelet Volume 10.1 Neutrophils % 72.1 Lymphocytes % 16.0 Monocytes % 8.6 Eosinophils % 2.5 Basophils % 0.4 Nucleated Red Blood Cells % 0.0 Neutrophils # 4.8 Lymphocytes # 1.1 Monocytes # 0.6 Eosinophils # 0.2 Basophils # 0.0 Nucleated Red Blood Cells # 0.0 Sodium Level 142 Potassium Level 3.9 Chloride Level 98 Carbon Dioxide Level 40 H Anion Gap 8 Blood Urea Nitrogen 7 Creatinine 0.51 Glucose Level 92 Calcium Level 8.9 Total Bilirubin 0.2 Direct Bilirubin 0.00 Indirect Bilirubin 0.2 Aspartate Amino Transf (AST/SGOT) 19 Alanine Aminotransferase (ALT/SGPT) 27 Alkaline Phosphatase 78 Total Protein 6.3 Albumin 2.9 L Globulin 3.40 H Albumin/Globulin Ratio 0.85 Medications Medications Current Medications Senna/Docusate Sodium (Senokot-S) 1 tab BID PO Last administered on 12/24/16 08:11; Admin Dose 1 TAB; Start 12/23/16 at 20:15 Simethicone (Mylicon) 80 mg TID PRN PO DISTENSION/GAS/BLOATING Last administered on 12/24/16 14:57; Admin Dose 80 MG; Start 12/23/16 at 20:15 Diphenhydramine HCl (Benadryl) 25 mg Q4H PRN PO ITCHING; Start 12/23/16 at 20: 15 Oxycodone HCl (Roxicodone) 10 mg Q4H PRN PO PAIN Last administered on 17:23; Admin Dose 10 MG; Start 12/23/16 at 20:15 Lamotrigine (Lamictal) 100 mg BID PO Last administered on 12/24/16 08:11; Admin Dose 100 MG; Start 12/23/16 at 20:15 Metoprolol Tartrate (Lopressor) 25 mg BID PO Last administered on 12/24/16 08 :13; Admin Dose 25 MG; Start 12/23/16 at 20:15 Diazepam (Valium) 5 mg Q6H PRN PO ANXIETY; Start 12/23/16 at 20:15 Salmeterol Xinafoate/ Fluticasone (Advair 250/50 Diskus) 1 inh BID INH Last administered on 12/24/16 08:14; Admin Dose 1 INH; Start 12/23/16 at 20:15 Acetaminophen (Tylenol Tab) 650 mg Q8H PRN PO headache; Start 12/23/16 at 20: 15 Docusate Sodium (Colace) 100 mg BID PO Last administered on 12/24/16 08:13; Admin Dose 100 MG; Start 12/23/16 at 21:00 Senna (Senokot) 1 tab HS PO Last administered on 12/23/16t 20:52; Admin Dose 1 TAB; Start 12/23/16 at 21:00 Bisacodyl (Dulcolax Supp) 10 mg HS PRN [place] CONSTIPATION; Start 12/23/16 at 20: 30 Magnesium Hydroxide (Milk Of Mag) 30 ml BID PRN PO CONSTIPATION; Start at 20:30 Lactulose (Enulose) 20 gm DAILY PRN PO CONSTIPATION; Start 12/23/16 at 20:30 Miscellaneous Information (* Miscellaneous Pharmacy Order) 12/24/2016 PLEASE GIVE ... ONCE XX ; Start 12/24/16 at 10:00 Furosemide (Lasix) 20 mg DAILY@06 PO ; Start 12/25/16 at 06:00 Losartan Potassium (Cozaar) 25 mg DAILY@06 PO ; Start 12/25/16 at 06:00 ROLF ALVA MD Dec 24, 2016 18:56
[2016-12-24] MEDS ORDERED: RANITIDINE 150 MG TAB PO PRN (19:00)
[2016-12-24 20:00] VITALS: BP 140/68; RESP 18
[2016-12-24] MEDS ORDERED: METOPROLOL 100 MG TAB ONE (20:22)
[2016-12-24] MEDS: SENNA TAB PO SCH (20:29)
[2016-12-24] MEDS ORDERED: METOPROLOL 25 MG TAB ONE (20:34)
[2016-12-25 02:00] VITALS: BP 134/74; PULSE 73; RESP 20
[2016-12-25 06:01] VITALS: BP 158/81; RESP 20
[2016-12-25] MEDS: FUROSEMIDE 20 MG TAB PO SCH (06:01)
[2016-12-25] MEDS: DOCUSATE SODIUM 100 MG CAP PO SCH ×3 (06:01→21:53)
[2016-12-25] MEDS: LAMOTRIGINE 100 MG TAB PO SCH ×3 (06:02→21:53)
[2016-12-25] MEDS: LOSARTAN 25 MG TAB PO SCH (06:02)
[2016-12-25] MEDS: oxyCODONE 5 MG TAB PO PRN ×2 (06:16→14:11)
[2016-12-25 07:53] VITALS: BP 129/60; PULSE 71; RESP 69
[2016-12-25] MEDS: SALMETEROL/FLUTICASONE 250/50 INHA INH SCH ×3 (07:55→21:53)
[2016-12-25] MEDS: SENNA/DOCUSATE NA (8.6MG/50MG) TAB PO SCH ×2 (08:06→21:54)
[2016-12-25] MEDS: METOPROLOL 25 MG TAB PO SCH ×2 (08:06→21:57)
--- NOTE | 2016-12-25 11:28 | CONS ---
Date/Time of Note Date/Time of Note DATE: 12/25/16 TIME: 11:27 Consult Date/Type/Reason Admit Date/Time Dec 23, 2016 at 19:25 Initial Consult Date Subjective Reports pain under good control Objective pulm-cta cga transfer min wheelchair Vital Signs Date Time Temp Pulse Resp B/P Pulse Ox O2 Delivery O2 Flow Rate FiO2 12/25/16 08:00 2.0 12/25/16 07:53 98.6 71 69 129/60 93 12/25/16 06:01 Nasal Cannula Intake and Output 12/24/16 12/24/16 12/25/16 15:00 23:00 07:00 Intake Total 800 ml 500 ml Output Total 400 ml 1700 ml Balance 400 ml -1200 ml Results/Medications Result Diagram: 12/24/1618 12/24/16 0618 Medications Current Medications Simethicone (Mylicon) 80 mg TID PRN PO DISTENSION/GAS/BLOATING Last administered on 12/24/16 14:57; Admin Dose 80 MG; Start 12/23/16 at 20:15 Diphenhydramine HCl (Benadryl) 25 mg Q4H PRN PO ITCHING; Start 12/23/16 at 20: 15 Oxycodone HCl (Roxicodone) 10 mg Q4H PRN PO PAIN Last administered on 06:16; Admin Dose 10 MG; Start 12/23/16 at 20:15 Diazepam (Valium) 5 mg Q6H PRN PO ANXIETY; Start 12/23/16 at 20:15 Acetaminophen (Tylenol Tab) 650 mg Q8H PRN PO headache; Start 12/23/16 at 20: 15 Bisacodyl (Dulcolax Supp) 10 mg HS PRN [place] CONSTIPATION; Start 12/23/16 at 20: 30 Magnesium Hydroxide (Milk Of Mag) 30 ml BID PRN PO CONSTIPATION; Start at 20:30 Lactulose (Enulose) 20 gm DAILY PRN PO CONSTIPATION; Start 12/23/16 at 20:30 Miscellaneous Information (* Miscellaneous Pharmacy Order) 12/24/2016 PLEASE GIVE ... ONCE XX ; Start 12/24/16 at 10:00 Furosemide (Lasix) 20 mg DAILY@06 PO Last administered on 12/25/16 06:01; Admin Dose 20 MG; Start 12/25/16 at 06:00 Losartan Potassium (Cozaar) 25 mg DAILY@06 PO Last administered on 12/25/16 06:02; Admin Dose 25 MG; Start 12/25/16 at 06:00 Docusate Sodium (Colace) 100 mg Q12 PO Last administered on 12/25/16 06:01; Admin Dose 100 MG; Start 12/25/16 at 06:00 Lamotrigine (Lamictal) 100 mg Q12 PO Last administered on 12/25/16 06:02; Admin Dose 100 MG; Start 12/25/16 at 06:00 Metoprolol Tartrate (Lopressor) 25 mg Q12 PO Last administered on 12/25/16 08 :06; Admin Dose 25 MG; Start 12/25/16 at 06:00 Salmeterol Xinafoate/ Fluticasone (Advair 250/50 Diskus) 1 inh Q12 INH Last administered on 12/25/16 07:55; Admin Dose 1 INH; Start 12/25/16 at 06:00 Senna/Docusate Sodium (Senokot-S) 1 tab Q12 PO Last administered on 12/25/16 08:06; Admin Dose 1 TAB; Start 12/25/16 at 06:00 Ranitidine HCl (Zantac) 150 mg BID PRN PO upset stomach; Start 12/24/16 at 19: 00 Assessment/Plan Additional Assessment/Plan Rehab- Other orthopedic injury with complicated right ankle trimalleolar nonunion fracture, ultimately requiring ORIF. Continue rehab program, increase activities as tolerated Postoperative respiratory distress. Chronic obstructive pulmonary disease. Acute pain syndrome-continue current medications Hypertension. Degenerative joint disease. History of recent right upper extremity fracture in addition to the right lower extremity fracture. MELIDA FONTANA MD Dec 25, 2016 11:28
--- NOTE | 2016-12-25 15:20 | PN ---
Date/Time of Note Date/Time of Note DATE: 12/25/16 TIME: 15:14 Assessment/Plan VTE Prophylaxis VTE Prophylaxis Intervention: other VTE Contraindication Reason: sx procedure on lower extremity Lines/Catheters Central line still needed: No Urinary Cath still in place: No Assessment/Plan Problems: (1) COPD (chronic obstructive pulmonary disease) Status: Chronic Comment: at baseline (2) Hypertension Status: Chronic Comment: good control Qualifiers: Hypertension type: essential hypertension Qualified Code: I10 - Essential hypertension (3) Ankle fracture, right Status: Acute Comment: status post ORIF and now non weight bearing. Management per Dr. Browne Assessment/Plan Clinically stable and doing well. Will continue O2 by NC to maintain O2 saturations greater than 90%. Continue PT/OT per ARU Subjective 24 Hr Interval Summary Free Text/Dictation Patient feels well. Gets short of breath with PT but overall doing well Exam/Review of Systems Vital Signs Vitals Vital Signs Date Time Temp Pulse Resp B/P Pulse Ox O2 Delivery O2 Flow Rate FiO2 12/25/16 08:00 2.0 12/25/16 07:53 98.6 71 69 129/60 93 12/25/16 06:01 Nasal Cannula Intake and Output 12/24/16 12/24/16 12/25/16 15:00 23:00 07:00 Intake Total 800 ml 500 ml Output Total 400 ml 1700 ml Balance 400 ml -1200 ml Exam Constitutional: alert, oriented, well developed Neck: supple Respiratory: wheezing (mild wheezes throughout) Cardiovascular: regular rate and rhythm Musculoskeletal: other (right leg boot cast) Extremities: normal pulses (left) Results Result Diagram: 12/24/1661712/24/1618 Medications Medications Current Medications Simethicone (Mylicon) 80 mg TID PRN PO DISTENSION/GAS/BLOATING Last administered on 12/24/16 14:57; Admin Dose 80 MG; Start 12/23/16 at 20:15 Diphenhydramine HCl (Benadryl) 25 mg Q4H PRN PO ITCHING; Start 12/23/16 at 20: 15 Oxycodone HCl (Roxicodone) 10 mg Q4H PRN PO PAIN Last administered on 14:11; Admin Dose 10 MG; Start 12/23/16 at 20:15 Diazepam (Valium) 5 mg Q6H PRN PO ANXIETY; Start 12/23/16 at 20:15 Acetaminophen (Tylenol Tab) 650 mg Q8H PRN PO headache; Start 12/23/16 at 20: 15 Bisacodyl (Dulcolax Supp) 10 mg HS PRN [place] CONSTIPATION; Start 12/23/16 at 20: 30 Magnesium Hydroxide (Milk Of Mag) 30 ml BID PRN PO CONSTIPATION; Start at 20:30 Lactulose (Enulose) 20 gm DAILY PRN PO CONSTIPATION; Start 12/23/16 at 20:30 Miscellaneous Information (* Miscellaneous Pharmacy Order) 12/24/2016 PLEASE GIVE ... ONCE XX ; Start 12/24/16 at 10:00 Furosemide (Lasix) 20 mg DAILY@06 PO Last administered on 12/25/16 06:01; Admin Dose 20 MG; Start 12/25/16 at 06:00 Losartan Potassium (Cozaar) 25 mg DAILY@06 PO Last administered on 12/25/16 06:02; Admin Dose 25 MG; Start 12/25/16 at 06:00 Docusate Sodium (Colace) 100 mg Q12 PO Last administered on 12/25/16 06:01; Admin Dose 100 MG; Start 12/25/16 at 06:00 Lamotrigine (Lamictal) 100 mg Q12 PO Last administered on 12/25/16 06:02; Admin Dose 100 MG; Start 12/25/16 at 06:00 Metoprolol Tartrate (Lopressor) 25 mg Q12 PO Last administered on 12/25/16 08 :06; Admin Dose 25 MG; Start 12/25/16 at 06:00 Salmeterol Xinafoate/ Fluticasone (Advair 250/50 Diskus) 1 inh Q12 INH Last administered on 12/25/16 07:55; Admin Dose 1 INH; Start 12/25/16 at 06:00 Senna/Docusate Sodium (Senokot-S) 1 tab Q12 PO Last administered on 12/25/16 08:06; Admin Dose 1 TAB; Start 12/25/16 at 06:00 Ranitidine HCl (Zantac) 150 mg BID PRN PO upset stomach; Start 12/24/16 at 19: 00 ROLF ALVA MD Dec 25, 2016 15:20
[2016-12-25 16:00] VITALS: BP 148/68; RESP 20
[2016-12-25] MEDS: RIVAROXABAN 10 MG TABLET PO SCH (18:00)
[2016-12-25 20:00] VITALS: BP 144/71; RESP 18
[2016-12-26 02:00] VITALS: BP 136/68; RESP 18
[2016-12-26] MEDS: FUROSEMIDE 20 MG TAB PO SCH (06:47)
[2016-12-26] MEDS: LOSARTAN 25 MG TAB PO SCH (06:47)
[2016-12-26 07:00] VITALS: BP 140/67; RESP 18
[2016-12-26] MEDS: SALMETEROL/FLUTICASONE 250/50 INHA INH SCH ×2 (08:42→22:06)
[2016-12-26] MEDS: SENNA/DOCUSATE NA (8.6MG/50MG) TAB PO SCH ×2 (08:43→22:03)
[2016-12-26] MEDS: METOPROLOL 25 MG TAB PO SCH ×2 (08:44→22:06)
[2016-12-26] MEDS: DOCUSATE SODIUM 100 MG CAP PO SCH ×2 (08:44→22:04)
[2016-12-26] MEDS: LAMOTRIGINE 100 MG TAB PO SCH ×2 (08:44→22:03)
[2016-12-26] MEDS: oxyCODONE 5 MG TAB PO PRN ×4 (08:45→22:04)
--- NOTE | 2016-12-26 12:26 | CONS ---
Date/Time of Note Date/Time of Note DATE: 12/26/16 TIME: 12:26 Consult Date/Type/Reason Admit Date/Time Dec 23, 2016 at 19:25 Subjective Patient comfortable Objective Lungs clear abdomen soft Contact guard assist Vital Signs Date Time Temp Pulse Resp B/P Pulse Ox O2 Delivery O2 Flow Rate FiO2 12/26/16 08:00 Nasal Cannula 2.0 12/26/16 07:00 98.5 76 18 140/67 93 Intake and Output 12/25/16 12/25/16 12/26/16 15:00 23:00 07:00 Intake Total 300 ml Output Total 400 ml Balance -100 ml Results/Medications Result Diagram: 12/24/1618 12/24/1618 Medications Current Medications Simethicone (Mylicon) 80 mg TID PRN PO DISTENSION/GAS/BLOATING Last administered on 12/24/16 14:57; Admin Dose 80 MG; Start 12/23/16 at 20:15 Diphenhydramine HCl (Benadryl) 25 mg Q4H PRN PO ITCHING; Start 12/23/16 at 20: 15 Oxycodone HCl (Roxicodone) 10 mg Q4H PRN PO PAIN Last administered on 08:45; Admin Dose 10 MG; Start 12/23/16 at 20:15 Diazepam (Valium) 5 mg Q6H PRN PO ANXIETY; Start 12/23/16 at 20:15 Acetaminophen (Tylenol Tab) 650 mg Q8H PRN PO headache; Start 12/23/16 at 20: 15 Bisacodyl (Dulcolax Supp) 10 mg HS PRN [place] CONSTIPATION; Start 12/23/16 at 20: 30 Magnesium Hydroxide (Milk Of Mag) 30 ml BID PRN PO CONSTIPATION; Start at 20:30 Lactulose (Enulose) 20 gm DAILY PRN PO CONSTIPATION; Start 12/23/16 at 20:30 Miscellaneous Information (* Miscellaneous Pharmacy Order) 12/24/2016 PLEASE GIVE ... ONCE XX ; Start 12/24/16 at 10:00 Furosemide (Lasix) 20 mg DAILY@06 PO Last administered on 12/26/16 06:47; Admin Dose 20 MG; Start 12/25/16 at 06:00 Losartan Potassium (Cozaar) 25 mg DAILY@06 PO Last administered on 12/26/16 06:47; Admin Dose 25 MG; Start 12/25/16 at 06:00 Docusate Sodium (Colace) 100 mg Q12 PO Last administered on 12/26/16 08:44; Admin Dose 100 MG; Start 12/25/16 at 06:00 Lamotrigine (Lamictal) 100 mg Q12 PO Last administered on 12/26/16 08:44; Admin Dose 100 MG; Start 12/25/16 at 06:00 Metoprolol Tartrate (Lopressor) 25 mg Q12 PO Last administered on 12/26/16 08 :44; Admin Dose 25 MG; Start 12/25/16 at 06:00 Salmeterol Xinafoate/ Fluticasone (Advair 250/50 Diskus) 1 inh Q12 INH Last administered on 12/26/16 08:42; Admin Dose 1 INH; Start 12/25/16 at 06:00 Senna/Docusate Sodium (Senokot-S) 1 tab Q12 PO Last administered on 12/26/16 08:43; Admin Dose 1 TAB; Start 12/25/16 at 06:00 Ranitidine HCl (Zantac) 150 mg BID PRN PO upset stomach; Start 12/24/16 at 19: 00 Assessment/Plan Additional Assessment/Plan Rehab- Other orthopedic injury with complicated right ankle trimalleolar nonunion fracture, ultimately requiring ORIF. Continue rehab program Postoperative respiratory distress. Chronic obstructive pulmonary disease. Acute pain syndrome-continue current medications Hypertension. Degenerative joint disease. History of recent right upper extremity fracture in addition to the right lower extremity fracture. MELIDA FONTANA MD Dec 26, 2016 12:26
--- NOTE | 2016-12-26 14:09 | PN ---
Date/Time of Note Date/Time of Note DATE: 12/26/16 TIME: 9:00 Late entry Assessment/Plan VTE Prophylaxis VTE Prophylaxis Intervention: other VTE Contraindication Reason: sx procedure on lower extremity Lines/Catheters Central line still needed: No Urinary Cath still in place: No Assessment/Plan Problems: (1) COPD (chronic obstructive pulmonary disease) Status: Chronic (2) Hypertension Status: Chronic Qualifiers: Hypertension type: essential hypertension Qualified Code: I10 - Essential hypertension (3) Ankle fracture, right Status: Acute Assessment/Plan Continue physical and occupational therapy as per ARU. Subjective 24 Hr Interval Summary Free Text/Dictation Patient excited about first shower after surgery. Feels better everyday. Breathing ok Exam/Review of Systems Vital Signs Vitals Vital Signs Date Time Temp Pulse Resp B/P Pulse Ox O2 Delivery O2 Flow Rate FiO2 12/26/16 08:00 Nasal Cannula 2.0 12/26/16 07:00 98.5 76 18 140/67 93 Intake and Output 12/25/16 12/25/16 12/26/16 14:59 22:59 06:59 Intake Total 300 ml Output Total 400 ml Balance -100 ml Exam Head: normocephalic Neck: supple Respiratory: clear to auscultation Cardiovascular: regular rate and rhythm Gastrointestinal: soft Musculoskeletal: other (right boot cast) Extremities: normal pulses (left), other Skin: nl turgor Results Result Diagram: 12/24/1618 12/24/16 0618 Medications Medications Current Medications Simethicone (Mylicon) 80 mg TID PRN PO DISTENSION/GAS/BLOATING Last administered on 12/24/16 14:57; Admin Dose 80 MG; Start 12/23/16 at 20:15 Diphenhydramine HCl (Benadryl) 25 mg Q4H PRN PO ITCHING; Start 12/23/16 at 20: 15 Oxycodone HCl (Roxicodone) 10 mg Q4H PRN PO PAIN Last administered on 13:09; Admin Dose 10 MG; Start 12/23/16 at 20:15 Diazepam (Valium) 5 mg Q6H PRN PO ANXIETY; Start 12/23/16 at 20:15 Acetaminophen (Tylenol Tab) 650 mg Q8H PRN PO headache; Start 12/23/16 at 20: 15 Bisacodyl (Dulcolax Supp) 10 mg HS PRN [place] CONSTIPATION; Start 12/23/16 at 20: 30 Magnesium Hydroxide (Milk Of Mag) 30 ml BID PRN PO CONSTIPATION; Start at 20:30 Lactulose (Enulose) 20 gm DAILY PRN PO CONSTIPATION; Start 12/23/16 at 20:30 Miscellaneous Information (* Miscellaneous Pharmacy Order) 12/24/2016 PLEASE GIVE ... ONCE XX ; Start 12/24/16 at 10:00 Furosemide (Lasix) 20 mg DAILY@06 PO Last administered on 12/26/16 06:47; Admin Dose 20 MG; Start 12/25/16 at 06:00 Losartan Potassium (Cozaar) 25 mg DAILY@06 PO Last administered on 12/26/16 06:47; Admin Dose 25 MG; Start 12/25/16 at 06:00 Docusate Sodium (Colace) 100 mg Q12 PO Last administered on 12/26/16 08:44; Admin Dose 100 MG; Start 12/25/16 at 06:00 Lamotrigine (Lamictal) 100 mg Q12 PO Last administered on 12/26/16 08:44; Admin Dose 100 MG; Start 12/25/16 at 06:00 Metoprolol Tartrate (Lopressor) 25 mg Q12 PO Last administered on 12/26/16 08 :44; Admin Dose 25 MG; Start 12/25/16 at 06:00 Salmeterol Xinafoate/ Fluticasone (Advair 250/50 Diskus) 1 inh Q12 INH Last administered on 12/26/16 08:42; Admin Dose 1 INH; Start 12/25/16 at 06:00 Senna/Docusate Sodium (Senokot-S) 1 tab Q12 PO Last administered on 12/26/16 08:43; Admin Dose 1 TAB; Start 12/25/16 at 06:00 Ranitidine HCl (Zantac) 150 mg BID PRN PO upset stomach; Start 12/24/16 at 19: 00 ROLF ALVA MD Dec 26, 2016 14:09
[2016-12-26] MEDS: RIVAROXABAN 10 MG TABLET PO SCH (18:06)
[2016-12-26 20:00] VITALS: BP 138/70; RESP 18
[2016-12-27] MEDS: oxyCODONE 5 MG TAB PO PRN ×3 (06:01→21:07)
[2016-12-27] MEDS: LOSARTAN 25 MG TAB PO SCH (06:02)
[2016-12-27] MEDS: FUROSEMIDE 20 MG TAB PO SCH (06:02)
[2016-12-27 06:04] VITALS: BP 133/66; PULSE 88
[2016-12-27 07:30] VITALS: BP 117/60; RESP 18
[2016-12-27] MEDS: SALMETEROL/FLUTICASONE 250/50 INHA INH SCH ×2 (08:13→21:07)
[2016-12-27] MEDS: METOPROLOL 25 MG TAB PO SCH ×2 (08:14→21:12)
[2016-12-27] MEDS: LAMOTRIGINE 100 MG TAB PO SCH ×2 (08:14→21:07)
[2016-12-27] MEDS: DOCUSATE SODIUM 100 MG CAP PO SCH ×2 (08:14→21:07)
[2016-12-27] MEDS: SENNA/DOCUSATE NA (8.6MG/50MG) TAB PO SCH ×2 (08:14→21:07)
--- NOTE | 2016-12-27 11:25 | CONS ---
Date/Time of Note Date/Time of Note DATE: 12/27/16 TIME: 11:24 Consult Date/Type/Reason Admit Date/Time Dec 23, 2016 at 19:25 Subjective Overall feeling better Objective Lungs clear Contact-guard assist transfer Contact guard assist to ambulate Vital Signs Date Time Temp Pulse Resp B/P Pulse Ox O2 Delivery O2 Flow Rate FiO2 12/27/16 09:51 86 Nasal Cannula 2.0 12/27/16 07:30 97.7 69 18 117/60 Intake and Output 12/26/16 12/26/16 12/27/16 15:00 23:00 07:00 Intake Total 1200 ml 1800 ml 1200 ml Output Total 300 ml 900 ml 0 ml Balance 900 ml 900 ml 1200 ml Results/Medications Result Diagram: 12/24/1618 12/24/16 0618 Medications Current Medications Simethicone (Mylicon) 80 mg TID PRN PO DISTENSION/GAS/BLOATING Last administered on 12/24/16 14:57; Admin Dose 80 MG; Start 12/23/16 at 20:15 Diphenhydramine HCl (Benadryl) 25 mg Q4H PRN PO ITCHING; Start 12/23/16 at 20: 15 Oxycodone HCl (Roxicodone) 10 mg Q4H PRN PO PAIN Last administered on 06:01; Admin Dose 10 MG; Start 12/23/16 at 20:15 Diazepam (Valium) 5 mg Q6H PRN PO ANXIETY; Start 12/23/16 at 20:15 Acetaminophen (Tylenol Tab) 650 mg Q8H PRN PO headache; Start 12/23/16 at 20: 15 Bisacodyl (Dulcolax Supp) 10 mg HS PRN [place] CONSTIPATION; Start 12/23/16 at 20: 30 Magnesium Hydroxide (Milk Of Mag) 30 ml BID PRN PO CONSTIPATION; Start at 20:30 Lactulose (Enulose) 20 gm DAILY PRN PO CONSTIPATION; Start 12/23/16 at 20:30 Miscellaneous Information (* Miscellaneous Pharmacy Order) 12/24/2016 PLEASE GIVE ... ONCE XX ; Start 12/24/16 at 10:00 Furosemide (Lasix) 20 mg DAILY@06 PO Last administered on 12/27/16 06:02; Admin Dose 20 MG; Start 12/25/16 at 06:00 Losartan Potassium (Cozaar) 25 mg DAILY@06 PO Last administered on 12/27/16 06:02; Admin Dose 25 MG; Start 12/25/16 at 06:00 Docusate Sodium (Colace) 100 mg Q12 PO Last administered on 12/27/16 08:14; Admin Dose 100 MG; Start 12/25/16 at 06:00 Lamotrigine (Lamictal) 100 mg Q12 PO Last administered on 12/27/16 08:14; Admin Dose 100 MG; Start 12/25/16 at 06:00 Metoprolol Tartrate (Lopressor) 25 mg Q12 PO Last administered on 12/27/16 08 :14; Admin Dose 25 MG; Start 12/25/16 at 06:00 Salmeterol Xinafoate/ Fluticasone (Advair 250/50 Diskus) 1 inh Q12 INH Last administered on 12/27/16 08:13; Admin Dose 1 INH; Start 12/25/16 at 06:00 Senna/Docusate Sodium (Senokot-S) 1 tab Q12 PO Last administered on 12/27/16 08:14; Admin Dose 1 TAB; Start 12/25/16 at 06:00 Ranitidine HCl (Zantac) 150 mg BID PRN PO upset stomach; Start 12/24/16 at 19: 00 Assessment/Plan Additional Assessment/Plan Rehab- Other orthopedic injury with complicated right ankle trimalleolar nonunion fracture, ultimately requiring ORIF. Continue rehab activities Postoperative respiratory distress. Chronic obstructive pulmonary disease. Acute pain syndrome-continue current medications Hypertension. Degenerative joint disease. History of recent right upper extremity fracture in addition to the right lower extremity fracture. MELIDA FONTANA MD Dec 27, 2016 11:25
[2016-12-27 14:00] VITALS: BP 133/63; RESP 20
--- NOTE | 2016-12-27 17:05 | CONS ---
DATE OF ADMISSION: 12/23/2016 DATE OF CONSULTATION: 12/27/2016 PULMONARY CONSULTATION HISTORY OF PRESENT ILLNESS: This is a 66-year-old lady with history of COPD, admitted for trimalleo lar fracture. Postoperatively, developed hypercapnia and hypoxemia requiring transfer to the intens [facility] care unit with the initiation of noninvasive positive pressure ventilation. The patient require d BiPAP for the first 24 hours, but following which was switched to nasal cannula O2 and since that time, transferred to acute rehab unit where she continues physical therapy. The patient continues t o require 2 liters supplemental O2. She has an extensive tobacco history, quit smoking some time ag o, but previously smoked more than 1 pack per day for 40+ years. PAST MEDICAL HISTORY: COPD. MEDICATIONS: Per chart. ALLERGIES: NONE. SOCIAL HISTORY: Ex-smoker, no alcohol, no history of drug use. FAMILY HISTORY: Noncontributory. SYSTEMS REVIEW: A 12-point review of systems was negative other than that mentioned above. PHYSICAL EXAMINATION: GENERAL: Elderly-appearing lady, appears comfortable at rest, no acute distress. VITAL SIGNS: Currently afebrile, pulse is 70, blood pressure 117/60, O2 saturation 96% on 2 L nasal cannula. NECK: Supple. No JVD or lymphadenopathy. CARDIAC: S1, S2, no added sounds or murmurs. CHEST: Diminished air entry bilaterally. ABDOMEN: Soft, nontender. No guarding or rebound. EXTREMITIES: No cyanosis, clubbing, edema. NEUROLOGIC: Generalized weakness, but no focal deficits. LABORATORY DATA: White count 6.7, hemoglobin 12.0, platelets 160. BUN 7, creatinine 0.51. INR pen ding. Urinalysis positive for leukocyte esterase. IMPRESSION AND PLAN: 1. Trimalleolar fracture. 2. Chronic obstructive pulmonary disease with recent hypercapnic respiratory failure. 3. Chronic hypoxemic respiratory failure. PLAN: 1. Continued supplemental O2. 2. Bronchodilators. 3. Physical therapy. 4. Patient's spirometry. 5. Follow up with pulmonary nodules. Dictated By: ALYSE CROFT MD SV/VICKY Conf#: [id number] DID#: [id number] CC: Devi Pritchard MD;*EndCC*
[2016-12-27] MEDS: RIVAROXABAN 10 MG TABLET PO SCH (17:50)
[2016-12-27 20:00] VITALS: BP 131/66; RESP 18
[2016-12-28 02:00] VITALS: BP 128/68; RESP 18
[2016-12-28] MEDS: oxyCODONE 5 MG TAB PO PRN ×3 (06:10→21:07)
[2016-12-28] MEDS: LOSARTAN 25 MG TAB PO SCH (06:10)
[2016-12-28] MEDS: FUROSEMIDE 20 MG TAB PO SCH (06:10)
[2016-12-28 07:30] VITALS: BP 125/63; RESP 20
--- NOTE | 2016-12-28 08:15 | CONS ---
Date/Time of Note Date/Time of Note DATE: 12/28/16 TIME: 08:15 Consult Date/Type/Reason Admit Date/Time Dec 23, 2016 at 19:25 Subjective Motivated, pleased with progress Objective pulm-cta abd-soft sba transfer Vital Signs Date Time Temp Pulse Resp B/P Pulse Ox O2 Delivery O2 Flow Rate FiO2 12/28/16 02:00 98.5 70 18 128/68 95 12/27/16 19:56 Nasal Cannula 2.0 Intake and Output 12/27/16 12/27/16 12/28/16 15:00 23:00 07:00 Intake Total 1400 ml 1200 ml Balance 1400 ml 1200 ml Results/Medications Result Diagram: 12/24/1661712/24/16 0618 Medications Current Medications Simethicone (Mylicon) 80 mg TID PRN PO DISTENSION/GAS/BLOATING Last administered on 12/24/16 14:57; Admin Dose 80 MG; Start 12/23/16 at 20:15 Diphenhydramine HCl (Benadryl) 25 mg Q4H PRN PO ITCHING; Start 12/23/16 at 20: 15 Oxycodone HCl (Roxicodone) 10 mg Q4H PRN PO PAIN Last administered on 06:10; Admin Dose 10 MG; Start 12/23/16 at 20:15 Diazepam (Valium) 5 mg Q6H PRN PO ANXIETY; Start 12/23/16 at 20:15 Acetaminophen (Tylenol Tab) 650 mg Q8H PRN PO headache; Start 12/23/16 at 20: 15 Bisacodyl (Dulcolax Supp) 10 mg HS PRN [place] CONSTIPATION; Start 12/23/16 at 20: 30 Magnesium Hydroxide (Milk Of Mag) 30 ml BID PRN PO CONSTIPATION; Start at 20:30 Lactulose (Enulose) 20 gm DAILY PRN PO CONSTIPATION; Start 12/23/16 at 20:30 Miscellaneous Information (* Miscellaneous Pharmacy Order) 12/24/2016 PLEASE GIVE ... ONCE XX ; Start 12/24/16 at 10:00 Furosemide (Lasix) 20 mg DAILY@06 PO Last administered on 12/28/16 06:10; Admin Dose 20 MG; Start 12/25/16 at 06:00 Losartan Potassium (Cozaar) 25 mg DAILY@06 PO Last administered on 12/28/16 06:10; Admin Dose 25 MG; Start 12/25/16 at 06:00 Docusate Sodium (Colace) 100 mg Q12 PO Last administered on 12/27/16 21:07; Admin Dose 100 MG; Start 12/25/16 at 06:00 Lamotrigine (Lamictal) 100 mg Q12 PO Last administered on 12/27/16 21:07; Admin Dose 100 MG; Start 12/25/16 at 06:00 Metoprolol Tartrate (Lopressor) 25 mg Q12 PO Last administered on 12/27/16 21 :12; Admin Dose 25 MG; Start 12/25/16 at 06:00 Salmeterol Xinafoate/ Fluticasone (Advair 250/50 Diskus) 1 inh Q12 INH Last administered on 12/27/16 21:07; Admin Dose 1 INH; Start 12/25/16 at 06:00 Senna/Docusate Sodium (Senokot-S) 1 tab Q12 PO Last administered on 12/27/16 21:07; Admin Dose 1 TAB; Start 12/25/16 at 06:00 Ranitidine HCl (Zantac) 150 mg BID PRN PO upset stomach; Start 12/24/16 at 19: 00 Assessment/Plan Additional Assessment/Plan Rehab- Other orthopedic injury with complicated right ankle trimalleolar nonunion fracture, ultimately requiring ORIF. Continue rehab activities, working towards home this week Postoperative respiratory distress. Chronic obstructive pulmonary disease. Acute pain syndrome-continue current medications Hypertension. Degenerative joint disease. History of recent right upper extremity fracture in addition to the right lower extremity fracture. MELIDA FONTANA MD Dec 28, 2016 08:15
[2016-12-28] MEDS: SALMETEROL/FLUTICASONE 250/50 INHA INH SCH ×2 (08:22→21:06)
[2016-12-28] MEDS: SENNA/DOCUSATE NA (8.6MG/50MG) TAB PO SCH ×2 (08:23→21:06)
[2016-12-28] MEDS: METOPROLOL 25 MG TAB PO SCH ×2 (08:23→21:07)
[2016-12-28] MEDS: DOCUSATE SODIUM 100 MG CAP PO SCH ×2 (08:23→21:07)
[2016-12-28] MEDS: LAMOTRIGINE 100 MG TAB PO SCH ×2 (08:23→21:06)
--- NOTE | 2016-12-28 10:20 | PN ---
Date/Time of Note Date/Time of Note DATE: 12/28/16 TIME: 10:17 Assessment/Plan VTE Prophylaxis VTE Prophylaxis Intervention: heparin Lines/Catheters Urinary Cath still in place: No Assessment/Plan Problems: (1) COPD (chronic obstructive pulmonary disease) Status: Chronic Comment: She is on Advair at this time. I am going to add in an anticholinergic specifically TO Rakesh p.m. to her regimen. She had no history of asthma in the past so I do not believe that Montella cast is yet indicated nor is theophylline Qualifiers: COPD type: emphysema Emphysema type: panlobular Qualified Code: J43.1 - Panlobular emphysema (2) Hypertension Status: Chronic Comment: Adequate control. Qualifiers: Hypertension type: essential hypertension Qualified Code: I10 - Essential hypertension (3) Ankle fracture, right Status: Acute Comment: She is post surgery from Dr. Butt continue with rehabilitative care Qualifiers: Encounter type: subsequent encounter Fracture type: closed Fracture healing: with nonunion Qualified Code: S82.891K - Closed fracture of right ankle with nonunion, subsequent encounter Subjective 24 Hr Interval Summary Free Text/Dictation Patient in bed but working with physical therapy. Constitutional: no complaints (No fevers chills or sweats) Respiratory: shortness of breath (She reports that she is at baseline) Cardiovascular: no complaints Gastrointestinal: no complaints Genitourinary: no complaints Exam/Review of Systems Vital Signs Vitals Vital Signs Date Time Temp Pulse Resp B/P Pulse Ox O2 Delivery O2 Flow Rate FiO2 12/28/16 07:30 97.9 63 20 125/63 94 12/27/16 19:56 Nasal Cannula 2.0 Intake and Output 12/27/16 12/27/16 12/28/16 15:00 23:00 07:00 Intake Total 1400 ml 1200 ml Balance 1400 ml 1200 ml Exam Constitutional: alert, oriented Neck: non-tender, supple Respiratory: diminished breath sounds, wheezing (Scant wheezing poor air movement) Cardiovascular: nl pulses, regular rate and rhythm Gastrointestinal: nl liver, spleen, non-tender, soft Results Result Diagram: 12/24/1618 12/24/16 0618 Medications Medications Current Medications Simethicone (Mylicon) 80 mg TID PRN PO DISTENSION/GAS/BLOATING Last administered on 12/24/16t 14:57; Admin Dose 80 MG; Start 12/23/16 at 20:15 Diphenhydramine HCl (Benadryl) 25 mg Q4H PRN PO ITCHING; Start 12/23/16 at 20: 15 Oxycodone HCl (Roxicodone) 10 mg Q4H PRN PO PAIN Last administered on 06:10; Admin Dose 10 MG; Start 12/23/16 at 20:15 Diazepam (Valium) 5 mg Q6H PRN PO ANXIETY; Start 12/23/16 at 20:15 Acetaminophen (Tylenol Tab) 650 mg Q8H PRN PO headache; Start 12/23/16 at 20: 15 Bisacodyl (Dulcolax Supp) 10 mg HS PRN [place] CONSTIPATION; Start 12/23/16 at 20: 30 Magnesium Hydroxide (Milk Of Mag) 30 ml BID PRN PO CONSTIPATION; Start at 20:30 Lactulose (Enulose) 20 gm DAILY PRN PO CONSTIPATION; Start 12/23/16 at 20:30 Miscellaneous Information (* Miscellaneous Pharmacy Order) 12/24/2016 PLEASE GIVE ... ONCE XX ; Start 12/24/16 at 10:00 Furosemide (Lasix) 20 mg DAILY@06 PO Last administered on 12/28/16 06:10; Admin Dose 20 MG; Start 12/25/16 at 06:00 Losartan Potassium (Cozaar) 25 mg DAILY@06 PO Last administered on 12/28/16 06:10; Admin Dose 25 MG; Start 12/25/16 at 06:00 Docusate Sodium (Colace) 100 mg Q12 PO Last administered on 12/28/16 08:23; Admin Dose 100 MG; Start 12/25/16 at 06:00 Lamotrigine (Lamictal) 100 mg Q12 PO Last administered on 12/28/16 08:23; Admin Dose 100 MG; Start 12/25/16 at 06:00 Metoprolol Tartrate (Lopressor) 25 mg Q12 PO Last administered on 12/28/16 08 :23; Admin Dose 25 MG; Start 12/25/16 at 06:00 Salmeterol Xinafoate/ Fluticasone (Advair 250/50 Diskus) 1 inh Q12 INH Last administered on 12/28/16 08:22; Admin Dose 1 INH; Start 12/25/16 at 06:00 Senna/Docusate Sodium (Senokot-S) 1 tab Q12 PO Last administered on 12/28/16 08:23; Admin Dose 1 TAB; Start 12/25/16 at 06:00 Ranitidine HCl (Zantac) 150 mg BID PRN PO upset stomach; Start 12/24/16 at 19: 00 SHEILA TRIANA MD Dec 28, 2016 10:20
[2016-12-28] MEDS: TIOTROPIUM 18 MCG CAPSULE INHA DEV INH SCH ×2 (10:30→16:44)
[2016-12-28 14:00] VITALS: BP 128/72; RESP 20
[2016-12-28] MEDS: RIVAROXABAN 10 MG TABLET PO SCH (16:47)
[2016-12-28 19:32] VITALS: BP 113/51; RESP 18
[2016-12-29 02:34] VITALS: BP 122/58; RESP 18
[2016-12-29] MEDS: LOSARTAN 25 MG TAB PO SCH (06:30)
[2016-12-29] MEDS: FUROSEMIDE 20 MG TAB PO SCH (06:31)
[2016-12-29] MEDS: oxyCODONE 5 MG TAB PO PRN ×2 (06:31→17:20)
[2016-12-29 07:00] VITALS: BP 136/60; RESP 18
[2016-12-29] MEDS: SALMETEROL/FLUTICASONE 250/50 INHA INH SCH ×2 (09:00→21:09)
[2016-12-29] MEDS: TIOTROPIUM 18 MCG CAPSULE INHA DEV INH SCH (09:00)
[2016-12-29] MEDS: DOCUSATE SODIUM 100 MG CAP PO SCH ×2 (09:02→21:04)
[2016-12-29] MEDS: METOPROLOL 25 MG TAB PO SCH ×2 (09:02→21:05)
[2016-12-29] MEDS: SENNA/DOCUSATE NA (8.6MG/50MG) TAB PO SCH ×2 (09:03→21:00)
[2016-12-29] MEDS: LAMOTRIGINE 100 MG TAB PO SCH ×2 (09:03→21:04)
--- NOTE | 2016-12-29 12:59 | PN ---
Date/Time of Note Date/Time of Note DATE: 12/29/16 TIME: 12:58 Assessment/Plan VTE Prophylaxis VTE Prophylaxis Intervention: heparin Lines/Catheters Urinary Cath still in place: No Assessment/Plan Problems: (1) COPD (chronic obstructive pulmonary disease) Status: Chronic Comment: Improved with usage of the anticholinergic agent in combination with the Advair. Patient counseled at length about the rationale for treatment risks and benefits of treatment and goals of treatment. Please note I am not sure that she absorbed all of the data Qualifiers: COPD type: emphysema Emphysema type: panlobular Qualified Code: J43.1 - Panlobular emphysema (2) Hypertension Status: Chronic Comment: Good control Qualifiers: Hypertension type: essential hypertension Qualified Code: I10 - Essential hypertension (3) Ankle fracture, right Status: Acute Comment: Recuperating Qualifiers: Encounter type: subsequent encounter Fracture type: closed Fracture healing: with nonunion Qualified Code: S82.891K - Closed fracture of right ankle with nonunion, subsequent encounter Subjective 24 Hr Interval Summary Free Text/Dictation She reports that her breathing feels a little bit better. Please note she is no longer using supplemental oxygen Constitutional: no complaints Respiratory: no complaints Cardiovascular: no complaints Gastrointestinal: no complaints Exam/Review of Systems Vital Signs Vitals Vital Signs Date Time Temp Pulse Resp B/P Pulse Ox O2 Delivery O2 Flow Rate FiO2 12/29/16 08:00 Nasal Cannula 2.0 12/29/16 07:00 98.4 63 18 136/60 91 Intake and Output 12/28/16 12/28/16 12/29/16 15:00 23:00 07:00 Intake Total 1600 ml Output Total 450 ml 1 ml Balance 1150 ml -1 ml Exam Constitutional: alert, oriented Respiratory: clear to auscultation, diminished breath sounds Cardiovascular: nl pulses, regular rate and rhythm Medications Medications Current Medications Simethicone (Mylicon) 80 mg TID PRN PO DISTENSION/GAS/BLOATING Last administered on 12/24/16t 14:57; Admin Dose 80 MG; Start 12/23/16 at 20:15 Diphenhydramine HCl (Benadryl) 25 mg Q4H PRN PO ITCHING; Start 12/23/16 at 20: 15 Oxycodone HCl (Roxicodone) 10 mg Q4H PRN PO PAIN Last administered on 06:31; Admin Dose 10 MG; Start 12/23/16 at 20:15 Diazepam (Valium) 5 mg Q6H PRN PO ANXIETY; Start 12/23/16 at 20:15 Acetaminophen (Tylenol Tab) 650 mg Q8H PRN PO headache; Start 12/23/16 at 20: 15 Bisacodyl (Dulcolax Supp) 10 mg HS PRN [place] CONSTIPATION; Start 12/23/16 at 20: 30 Magnesium Hydroxide (Milk Of Mag) 30 ml BID PRN PO CONSTIPATION; Start at 20:30 Lactulose (Enulose) 20 gm DAILY PRN PO CONSTIPATION; Start 12/23/16 at 20:30 Miscellaneous Information (* Miscellaneous Pharmacy Order) 12/24/2016 PLEASE GIVE ... ONCE XX ; Start 12/24/16 at 10:00 Furosemide (Lasix) 20 mg DAILY@06 PO Last administered on 12/29/16 06:31; Admin Dose 20 MG; Start 12/25/16 at 06:00 Losartan Potassium (Cozaar) 25 mg DAILY@06 PO Last administered on 12/29/16 06:30; Admin Dose 25 MG; Start 12/25/16 at 06:00 Docusate Sodium (Colace) 100 mg Q12 PO Last administered on 12/29/16 09:02; Admin Dose 100 MG; Start 12/25/16 at 06:00 Lamotrigine (Lamictal) 100 mg Q12 PO Last administered on 12/29/16 09:03; Admin Dose 100 MG; Start 12/25/16 at 06:00 Metoprolol Tartrate (Lopressor) 25 mg Q12 PO Last administered on 12/29/16 09 :02; Admin Dose 25 MG; Start 12/25/16 at 06:00 Salmeterol Xinafoate/ Fluticasone (Advair 250/50 Diskus) 1 inh Q12 INH Last administered on 12/28/16 21:06; Admin Dose 1 INH; Start 12/25/16 at 06:00 Senna/Docusate Sodium (Senokot-S) 1 tab Q12 PO Last administered on 12/29/16 09:03; Admin Dose 1 TAB; Start 12/25/16 at 06:00 Ranitidine HCl (Zantac) 150 mg BID PRN PO upset stomach; Start 12/24/16 at 19: 00 Tiotropium [place] (Spiriva) 1 inh DAILY INH Last administered on 12/29/16t 09 :00; Admin Dose 1 INH; Start 12/28/16 at 10:30 SHEILA TRIANA MD Dec 29, 2016 12:59
[2016-12-29] MEDS: RIVAROXABAN 10 MG TABLET PO SCH (17:15)
[2016-12-29 19:57] VITALS: BP 117/56; RESP 18
[2016-12-30 02:00] VITALS: BP 118/56; PULSE 63
[2016-12-30] MEDS: FUROSEMIDE 20 MG TAB PO SCH (05:36)
[2016-12-30] MEDS: LOSARTAN 25 MG TAB PO SCH (05:36)
[2016-12-30 07:00] VITALS: BP 133/62; RESP 18
[2016-12-30] MEDS: DOCUSATE SODIUM 100 MG CAP PO SCH ×2 (08:56→19:50)
[2016-12-30] MEDS: LAMOTRIGINE 100 MG TAB PO SCH ×2 (08:57→19:50)
[2016-12-30] MEDS: METOPROLOL 25 MG TAB PO SCH ×2 (08:57→19:51)
[2016-12-30] MEDS: SENNA/DOCUSATE NA (8.6MG/50MG) TAB PO SCH ×2 (08:57→19:50)
[2016-12-30] MEDS: TIOTROPIUM 18 MCG CAPSULE INHA DEV INH SCH (08:58)
[2016-12-30] MEDS: SALMETEROL/FLUTICASONE 250/50 INHA INH SCH (08:58)
[2016-12-30] MEDS: oxyCODONE 5 MG TAB PO PRN ×3 (09:07→19:51)
--- NOTE | 2016-12-30 12:42 | CONS ---
Date/Time of Note Date/Time of Note DATE: 12/30/16 TIME: 12:42 Consult Date/Type/Reason Admit Date/Time Dec 23, 2016 at 19:25 Objective Vital Signs Date Time Temp Pulse Resp B/P Pulse Ox O2 Delivery O2 Flow Rate FiO2 12/30/16 09:10 92 2.0 12/30/16 09:10 76 20 Nasal Cannula 12/30/16 07:00 98.6 133/62 Intake and Output 12/29/16 12/29/16 12/30/16 15:00 23:00 07:00 Intake Total 1800 ml 300 ml Output Total 1000 ml 1700 ml Balance 800 ml -1400 ml INTERDISCIPLINARY TEAM CONFERENCE BOWEL- Cont BLADDER-Cont SKIN- intact OT- DRESSING-sba BATHING-sba TOILETING-sba PT- BED MOBILITY-sba TRANSFERS-sba AMBULATION-sba W.C. MOBILITY-OK A/P- Interdisciplinary team conference held today. Please see interdisciplinary sheet. Working toward d.c. on 12/31 with post discharge follow up of physical therapy, occupational therapy. Results/Medications Medications Current Medications Simethicone (Mylicon) 80 mg TID PRN PO DISTENSION/GAS/BLOATING Last administered on 12/24/16 14:57; Admin Dose 80 MG; Start 12/23/16 at 20:15 Diphenhydramine HCl (Benadryl) 25 mg Q4H PRN PO ITCHING; Start 12/23/16 at 20: 15 Oxycodone HCl (Roxicodone) 10 mg Q4H PRN PO PAIN Last administered on 09:07; Admin Dose 10 MG; Start 12/23/16 at 20:15 Diazepam (Valium) 5 mg Q6H PRN PO ANXIETY; Start 12/23/16 at 20:15 Acetaminophen (Tylenol Tab) 650 mg Q8H PRN PO headache; Start 12/23/16 at 20: 15 Bisacodyl (Dulcolax Supp) 10 mg HS PRN [place] CONSTIPATION; Start 12/23/16 at 20: 30 Magnesium Hydroxide (Milk Of Mag) 30 ml BID PRN PO CONSTIPATION; Start at 20:30 Lactulose (Enulose) 20 gm DAILY PRN PO CONSTIPATION; Start 12/23/16 at 20:30 Miscellaneous Information (* Miscellaneous Pharmacy Order) 12/24/2016 PLEASE GIVE ... ONCE XX ; Start 12/24/16 at 10:00 Furosemide (Lasix) 20 mg DAILY@06 PO Last administered on 12/30/16 05:36; Admin Dose 20 MG; Start 12/25/16 at 06:00 Losartan Potassium (Cozaar) 25 mg DAILY@06 PO Last administered on 12/30/16 05:36; Admin Dose 25 MG; Start 12/25/16 at 06:00 Docusate Sodium (Colace) 100 mg Q12 PO Last administered on 12/30/16 08:56; Admin Dose 100 MG; Start 12/25/16 at 06:00 Lamotrigine (Lamictal) 100 mg Q12 PO Last administered on 12/30/16 08:57; Admin Dose 100 MG; Start 12/25/16 at 06:00 Metoprolol Tartrate (Lopressor) 25 mg Q12 PO Last administered on 12/30/16 08 :57; Admin Dose 25 MG; Start 12/25/16 at 06:00 Salmeterol Xinafoate/ Fluticasone (Advair 250/50 Diskus) 1 inh Q12 INH Last administered on 12/29/16 21:09; Admin Dose 1 INH; Start 12/25/16 at 06:00 Senna/Docusate Sodium (Senokot-S) 1 tab Q12 PO Last administered on 12/30/16 08:57; Admin Dose 1 TAB; Start 12/25/16 at 06:00 Ranitidine HCl (Zantac) 150 mg BID PRN PO upset stomach; Start 12/24/16 at 19: 00 Tiotropium [place] (Spiriva) 1 inh DAILY INH Last administered on 12/30/16 08 :58; Admin Dose 1 INH; Start 12/28/16 at 10:30 MELIDA FONTANA MD Dec 30, 2016 12:42
[2016-12-30 14:00] VITALS: BP 112/63; RESP 18
--- NOTE | 2016-12-30 14:56 | CONS ---
Date/Time of Note Date/Time of Note DATE: 12/30/16 TIME: 14:55 Consult Date/Type/Reason Admit Date/Time Dec 23, 2016 at 19:25 Initial Consult Date Type of Consultation: Pulmonary Subjective Remains comfortable on nasal cannula continues exercise. Objective Vital Signs Date Time Temp Pulse Resp B/P Pulse Ox O2 Delivery O2 Flow Rate FiO2 12/30/16 09:10 92 2.0 12/30/16 09:10 76 20 Nasal Cannula 12/30/16 07:00 98.6 133/62 Intake and Output 12/29/16 12/29/16 12/30/16 15:00 23:00 07:00 Intake Total 1800 ml 300 ml Output Total 1000 ml 1700 ml Balance 800 ml -1400 ml Exam PHYSICAL EXAMINATION: GENERAL: Elderly-appearing lady, appears comfortable at rest, no acute distress. VITAL SIGNS: NECK: Supple. No JVD or lymphadenopathy. CARDIAC: S1, S2, no added sounds or murmurs. CHEST: Diminished air entry bilaterally. ABDOMEN: Soft, nontender. No guarding or rebound. EXTREMITIES: No cyanosis, clubbing, edema. NEUROLOGIC: Generalized weakness, but no focal deficits. Results/Medications Medications Current Medications Simethicone (Mylicon) 80 mg TID PRN PO DISTENSION/GAS/BLOATING Last administered on 12/24/16 14:57; Admin Dose 80 MG; Start 12/23/16 at 20:15 Diphenhydramine HCl (Benadryl) 25 mg Q4H PRN PO ITCHING; Start 12/23/16 at 20: 15 Oxycodone HCl (Roxicodone) 10 mg Q4H PRN PO PAIN Last administered on 09:07; Admin Dose 10 MG; Start 12/23/16 at 20:15 Diazepam (Valium) 5 mg Q6H PRN PO ANXIETY; Start 12/23/16 at 20:15 Acetaminophen (Tylenol Tab) 650 mg Q8H PRN PO headache; Start 12/23/16 at 20: 15 Bisacodyl (Dulcolax Supp) 10 mg HS PRN [place] CONSTIPATION; Start 12/23/16 at 20: 30 Magnesium Hydroxide (Milk Of Mag) 30 ml BID PRN PO CONSTIPATION; Start at 20:30 Lactulose (Enulose) 20 gm DAILY PRN PO CONSTIPATION; Start 12/23/16 at 20:30 Miscellaneous Information (* Miscellaneous Pharmacy Order) 12/24/2016 PLEASE GIVE ... ONCE XX ; Start 12/24/16 at 10:00 Furosemide (Lasix) 20 mg DAILY@06 PO Last administered on 12/30/16 05:36; Admin Dose 20 MG; Start 12/25/16 at 06:00 Losartan Potassium (Cozaar) 25 mg DAILY@06 PO Last administered on 12/30/16 05:36; Admin Dose 25 MG; Start 12/25/16 at 06:00 Docusate Sodium (Colace) 100 mg Q12 PO Last administered on 12/30/16 08:56; Admin Dose 100 MG; Start 12/25/16 at 06:00 Lamotrigine (Lamictal) 100 mg Q12 PO Last administered on 12/30/16 08:57; Admin Dose 100 MG; Start 12/25/16 at 06:00 Metoprolol Tartrate (Lopressor) 25 mg Q12 PO Last administered on 12/30/16 08 :57; Admin Dose 25 MG; Start 12/25/16 at 06:00 Senna/Docusate Sodium (Senokot-S) 1 tab Q12 PO Last administered on 12/30/16 08:57; Admin Dose 1 TAB; Start 12/25/16 at 06:00 Ranitidine HCl (Zantac) 150 mg BID PRN PO upset stomach; Start 12/24/16 at 19: 00 Tiotropium [place] (Spiriva) 1 inh DAILY INH Last administered on 12/30/16 08 :58; Admin Dose 1 INH; Start 12/28/16 at 10:30 Assessment/Plan Chief Complaint/Hosp Course IMPRESSION AND PLAN: 1. Trimalleolar fracture. 2. Chronic obstructive pulmonary disease with recent hypercapnic respiratory failure. 3. Chronic hypoxemic respiratory failure. PLAN: 1. Continued supplemental O2. 2. Bronchodilators. 3. Physical therapy. 4. Patient's spirometry. 5. Follow up with pulmonary nodules. Problems: ALYSE CROFT [facility], [facility] Dec 30, 2016 14:56
[2016-12-30] MEDS: RIVAROXABAN 10 MG TABLET PO SCH (18:00)
[2016-12-30 20:00] VITALS: BP 126/59; RESP 18
[2016-12-31 02:56] VITALS: BP 169/74; RESP 18
[2016-12-31] MEDS: oxyCODONE 5 MG TAB PO PRN (06:06)
[2016-12-31] MEDS: FUROSEMIDE 20 MG TAB PO SCH (06:06)
[2016-12-31] MEDS: LOSARTAN 25 MG TAB PO SCH (06:06)
[2016-12-31 06:08] VITALS: BP 107/56; PULSE 61
[2016-12-31 08:00] VITALS: BP 113/53; RESP 18
--- NOTE | 2016-12-31 09:53 | DS ---
Date/Time of Note Date/Time of Note DATE: 12/31/16 TIME: 09:51 Discharge Summary Admission/Discharge Info Admit Date/Time Dec 23, 2016 at 19:25 Discharge Date/Time Discharge Diagnosis 1. Other orthopedic injury with complicated right ankle trimalleolar nonunion fracture, ultimately requiring ORIF. 2. Postoperative respiratory distress, Chronic obstructive pulmonary disease. 3. Acute pain syndrome-improved 4. Hypertension. 5. Degenerative joint disease. 6. History of recent right upper extremity fracture in addition to the right lower extremity fracture. 7. Improvements in self-care and mobility. Patient Condition: Good Hospital Course Patient was admitted for comprehensive interdisciplinary acute rehabilitation. Patient made steady functional gains and improved from a mod level to a Supervised level for self care and mobility, including ambulating over 50 feet with the use of a front wheeled walker, and MO for WC mobility. Patient is being discharged home with recommendations for home health PT,OT and RN follow up. She will need home O2. DME recommendations: FWW; BSC; Shower Chair, and wheelchair. Patient will follow up with PMD upon DC. Home Meds No Active Prescriptions or Reported Meds Primary Care Provider MD MARIZOL Prince LIVA L. MD Dec 31, 2016 09:53
[2016-12-31] MEDS: TIOTROPIUM 18 MCG CAPSULE INHA DEV INH SCH (09:54)
[2016-12-31] MEDS: SENNA/DOCUSATE NA (8.6MG/50MG) TAB PO SCH (09:56)
[2016-12-31] MEDS: LAMOTRIGINE 100 MG TAB PO SCH (09:56)
[2016-12-31] MEDS: DOCUSATE SODIUM 100 MG CAP PO SCH (09:57)
[2016-12-31] MEDS: METOPROLOL 25 MG TAB PO SCH (10:00)
== END 2016-12-31 14:00 | disposition home health service (06) | DRG 565 ==
LOC: VRC 19:25
PROVIDERS: ADMIT Physical Medicine & Rehabilitation; ATTEND Internal Medicine
PROC: F08Z1ZZ Dressing Techniques Treatment (ICD-10-PCS; principal; 2016-12-23)
PROC: F08Z0ZZ Bathing/Showering Techniques Treatment (ICD-10-PCS; 2016-12-23)
PROC: F08Z2ZZ Grooming/Personal Hygiene Treatment (ICD-10-PCS; 2016-12-23)
PROC: F07Z5ZZ Bed Mobility Treatment (ICD-10-PCS; 2016-12-23)
PROC: F07Z8ZZ Transfer Training Treatment (ICD-10-PCS; 2016-12-23)
PROC: F07Z9ZZ Gait Training/Functional Ambulation Treatment (ICD-10-PCS; 2016-12-23)
PROC: F07Z4ZZ Wheelchair Mobility Treatment (ICD-10-PCS; 2016-12-23)
DX: S82.851K Displaced trimalleolar fracture of right lower leg, subsequent encounter for closed fracture with nonunion (principal); J96.11 Chronic respiratory failure with hypoxia; I11.9 Hypertensive heart disease without heart failure; I10 Essential (primary) hypertension; J44.9 Chronic obstructive pulmonary disease, unspecified; X58.XXXD Exposure to other specified factors, subsequent encounter; S42.301D Unspecified fracture of shaft of humerus, right arm, subsequent encounter for fracture with routine healing; M19.90 Unspecified osteoarthritis, unspecified site; R52 Pain, unspecified; Z87.891 Personal history of nicotine dependence
CPT/HCPCS: 80053; 81001; 85025; 87081; 87086; 97110; 97116; 97150; 97163; 97167; 97530; 97535; 97542